=== PATIENT | male | born 1935 | race Caucasian/White ===

== ENCOUNTER 2016-11-20 21:41 | Inpatient (IN) | payer OTHER ==
--- NOTE | ~2016-11-20 | DS ---
Discharge Summary [facility] [address] [place]. [address] NAME: LATOYA LIAO : 37 STATUS : ADM IN [facility]#: [id number] AGE: 81 ADM/REG DATE : 11/20/16 MR#: [id number] REPORT SERV DATE: 12/02/16 DICTATED BY: DATE: REPORT STATUS : Draft TRANSCRIBED BY: MODL DATE: 12/01/16 ADMISSION DATE: 11/20/2016 DISCHARGE DATE: 12/01/2016 ATTENDING PHYSICIANS: Dr. Dodie Berumen and Dr. Kyler Whitmore. CONSULTANTS: Included Dr. Abebe George of Vascular Surgery and Dr. Tesfaye Spencer of Infectious Disease. The patient was also seen by Dr. Maite Rodríguez of Gastroenterology. DISCHARGE DIAGNOSES: 1. 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 Status post four units packed red blood cells between 11/20/2016 and 11/22/2016. Discharge hemoglobin value 7.5. 2. Right lower extremity cellulitis - treated with antibiotics. 3. Severe right lower extremity peripheral arterial disease with multiple failed revascularization attempts of an occluded right femoral tibial bypass on 11/24/2016. Status post right [id number]-irp-[id number] amputation on 11/27/2016. 4. History of bilateral lower extremity lymphedema. 5. Hyponatremia due to diuretics. 6. Recurrent urinary retention - with indwelling Jimenez catheter at discharge. 7. Parkinson disease with mild dementia. 8. Hard of hearing. 9. History of ocular melanoma. 10.Coronary artery disease with prior coronary artery bypass grafting. 11.Chronic atrial fibrillation with permanent pacemaker placement. 12.Gout. 13.Hyperlipidemia. 14.Hypertension. 15.Chronic diastolic dysfunction without acute exacerbation this admission. 16.Constipation. 17.Acute kidney injury present at admission - resolved. IMAGIN. Multiple portable chest x-rays demonstrating cardiomegaly but no acute pulmonary edema. Bilateral lower extremity venous Doppler ultrasounds, 11/21/2016. No DVT. Pain films of bilateral lower extremities shows soft tissue swelling and cellulitis but no foreign body or bony involvement. Arterial Doppler 11/21/2016 showing severe right lower extremity arterial occlusive disease on the right likely originating at the aortoiliac level with monophasic flow in the common femoral artery, and probable occluded posterior tibial artery bypass graft. 2. KUB 11/30/2016, moderate fecal material in the right colon and mild retained fecal material in the rectal vault. No chronic colonic stasis. No obstruction. PERTINENT LABS: Creatinine during the admission ranged from 0.88 to 1.41. Sodium values ranging from 129 to 136. Liver enzymes were normal. Troponin negative. TSH 1.05. BNP 256. Lactic acid negative. Initial white blood cell count 8.3, hemoglobin values ranging Discharge Summary [address] [address] NAME: LATOYA LIAO : 37 STATUS : ADM IN PAT#: [id number] AGE: 81 ADM/REG DATE : 11/20/16 MR#: [id number] REPORT SERV DATE: 12/02/16 DICTATED BY: DATE: REPORT STATUS : Draft TRANSCRIBED BY: MODJamarcus DATE: 12/01/16 from 5.9 to 8.0 during the hospitalization, 7.5 at discharge. Platelet count normal. Coagulation studies normal. Urinalysis negative for urinary tract infection. Blood cultures x2, no growth. Stool for C. diff negative. Wound cultures of the foot, no fungal elements. BRIEF HISTORY: For full details, please see the previously dictated history of present illness by Alvin Snow. This is an 81-year-old white male with Parkinson disease and progressive weakness over the preceding one month. He was living at home and his sisters were attempting to care for him there but he was experiencing progressive weakness of the lower extremities and had sustained four to five falls. He was becoming progressively bed- bound, but also having increased urinary frequency and it became difficult for his sisters to care for him. Then, he developed some dark tarry stools, some swelling in his legs, and redness of his right foot. They brought him to the emergency department for evaluation of all these concerns and he was found to have acute blood loss anemia with a hemoglobin of 5.9. He was heme positive. He also showed right foot cellulitis and was admitted to the Hospitalist Service for management. HOSPITAL COURSE: For full details, please see the interim discharge summary dictated by Dodie Berumen for dates of service, 11/20/2016 through 11/24/2016. For the acute blood loss anemia, the patient was transfused four units of packed red blood cells between 11/20/2016 and 11/22/2016. GI consultation was obtained, and the patient underwent an upper endoscopy on 11/22/2016 demonstrating gastric AVMs which were ablated by Dr. Maite Rodríguez. He did not demonstrate any recurrent GI bleeding from that point on. His hemoglobin is 7.5 at the time of discharge, which is low, but he is asymptomatic from this and will not be felt to recover his hemoglobin additionally as an outpatient. He is discharged on iron. For the right lower extremity cellulitis, he was placed on IV antibiotics. Infectious Disease consultation was obtained, and the patient was initially on Ancef and clindamycin. Arterial ultrasound demonstrated occlusion of the prior bypass graft in the right lower extremity. Vascular Surgery was consulted and attempted to revascularize the leg on 11/24/2016 but was unsuccessful. They recommended right above the knee amputation to the patient, versus hospice. It took him several days to decide that he wanted to have a right above the knee amputation, and this occurred without complication on 11/27/2016. He remained in the hospital for his dressing to be taken down on 11/30/2016, which also occurred without complication and he was felt appropriate for discharge to rehab on 12/01/2016. His family is unable to care for him in his current condition at home. The patient has elected [facility]. For chronic bilateral lymphedema, the patient has been managed with Bumex. He has developed some hyponatremia with this, again asymptomatic, which can be monitored as an outpatient. The patient had multiple episodes of recurrent urinary retention during the hospitalization. He is being discharged with a Jimenez catheter in place. He has also been started on Flomax. Attempts to discontinue the Jimenez could be made in a few weeks, but would need to be monitored closely for recurrent retention. Discharge Summary [address] [place]. [address] NAME: LATOYA LIAO : 37 STATUS : ADM IN [facility]#: [id number] AGE: 81 ADM/REG DATE : 11/20/16 MR#: [id number] REPORT SERV DATE: 12/02/16 DICTATED BY: DATE: REPORT STATUS : Draft TRANSCRIBED BY: MODL DATE: 12/01/16 Due to the severity of GI bleeding and the decline in hemoglobin this admission, the patient is not felt to be a candidate for chronic anticoagulation despite history of chronic atrial fibrillation. DISCHARGE DISPOSITION: The patient is being discharged to [facility]. Jimenez catheter will be continued at discharge for reasons above. He should adhere to a cardiac diet with 1500 mL fluid restriction at discharge. CBC and BMP will need to be checked at rehab in one week to follow the anemia and hyponatremia. Wound care and activity restrictions as outlined by Vascular Surgery. DISCHARGE MEDICATIONS: Include: 1. Allopurinol 300 mg p.o. daily. 2. Artificial Tears two drops in each eye four times a day. 3. Aspirin 81 mg p.o. daily. 4. Lipitor 40 mg p.o. at bedtime. 5. Bumex 1 mg p.o. daily. 6. Iodosorb to ulcers daily. 7. Captopril 25 mg p.o. daily. 8. Sinemet 25/100 mg one tablet p.o. four times a day. 9. Iron sulfate 300 mg p.o. q.a.c. breakfast and supper. 10.Nystatin powder applied to groin as needed. 11.Protonix 40 mg p.o. q.a.c. breakfast and supper. 12.Potassium 10 mEq p.o. twice a day. 13.Primidone 250 mg p.o. daily. 14.Requip 0.5 mg p.o. four times a day. 15.Spironolactone 25 mg p.o. daily. 16.Carafate 1 g p.o. twice a day. 17.Topamax 100 mg p.o. daily. 18.Tylenol 1000 mg p.o. every six hours as needed. 19.Colace 100 mg p.o. twice a day as needed. 20.Zofran 4 mg p.o. q.4 hours p.r.n. 21.Percocet 5/325, one tablet p.o. every four hours as needed. 22.Flomax 0.4 mg p.o. at bedtime. Thirty five minutes was spent in completion of the discharge summary. DICTATED BY: Naomie Frankel/MACIE Kyler Whitmore M.D. Discharge Summary [facility] [address] [place]. [address] NAME: LATOYA LIAO : 37 STATUS : ADM IN PAT#: [id number] AGE: 81 ADM/REG DATE : 11/20/16 MR#: [id number] REPORT SERV DATE: 12/02/16 DICTATED BY: DATE: REPORT STATUS : Draft TRANSCRIBED BY: MODL DATE: 12/01/16 / [id number] CC: Naomie Frankel M.D. Sachin V Phade, M.D. Dennis Bizzoco, D.PMD Nara Urban M.D. Nathan B. Wyatt, MD [facility]
--- NOTE | ~2016-11-20 | CN ---
Consultation Report [facility] [address] [place]. [address] NAME: LATOYA GEORGE : 37 STATUS : ADM IN [facility]#: [id number] AGE: 81 ADM/REG DATE : 11/20/16 MR#: [id number] REPORT SERV DATE: 11/25/16 DICTATED BY: MONTEZ RODRÍGUEZ DATE: 11/25/16 REPORT STATUS : Draft TRANSCRIBED BY: MODL DATE: 11/25/16 GI CONSULTATION DATE OF CONSULTATION: 11/21/2016 REASON FOR CONSULTATION: Melena and anemia. HISTORY OF PRESENT ILLNESS: Mr. George is an 81-year-old gentleman with a history of coronary artery disease, status post CABG in 2003 and stent placement in 2008. He also has a history of atrial fibrillation, and presents with dark stools and more frequent falls over the past couple of months. Denies any bright red blood per rectum. Also has had associated weakness. He has also noted an increased lower extremity edema and erythema over the past one week. Hemoglobin and hematocrit were low when he first came in at 5.9 and 22.8, respectively, and they are currently 7 and 25.7, MCV 63, platelets 262. INR is 1.3. Troponins have been negative. BUN and creatinine ratio is 41:1.3. No nausea or vomiting. No abdominal pain. No coffee-ground or hematemesis. 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 PAST SURGICAL HISTORY: Coronary artery bypass graft in 2003 and PCI with stent placement in 2008, pacemaker placed. SOCIAL HISTORY: Tobacco use. No alcohol or drug use. He uses a walker for ambulation. FAMILY HISTORY: Coronary artery disease. MEDICATIONS: Reviewed. ALLERGIES: NO KNOWN DRUG ALLERGIES. PHYSICAL EXAMINATION: VITAL SIGNS: Patient is afebrile. Vital signs are stable. GENERAL: The patient is awake, alert, and oriented x3. Well developed, well nourished, in no acute distress. HEENT: Atraumatic, normocephalic. Anicteric. Mucous membranes moist. CARDIAC: S1, S2. CHEST: Clear. ABDOMEN: Soft, nontender, and nondistended. Bowel sounds normoactive. LABORATORY DATA: Show WBC 8.9, hemoglobin 7, hematocrit 25.7, platelets 262. INR 1.3. Sodium 138, potassium 3.2, chloride 102, bicarb 26, BUN 41, creatinine 1.3. Glucose 107. Liver enzymes normal. Troponin negative. TSH normal. Consultation Report [facility] [address] [place]. [address] NAME: LATOYA GEORGE : 37 STATUS : ADM IN [facility]#: [id number] AGE: 81 ADM/REG DATE : 11/20/16 MR#: [id number] REPORT SERV DATE: 11/25/16 DICTATED BY: MONTEZ RODRÍGUEZ DATE: 11/25/16 REPORT STATUS : Draft TRANSCRIBED BY: MACIE DATE: 11/25/16 IMPRESSION AND PLAN: Anemia secondary to possible upper GI bleed with history of melena. We will go ahead and make n.p.o. and schedule for EGD with anesthesia to sedate. Dr. George will be covering over the weekend and I will discuss this with him. I reviewed the procedure, indications, risks, benefits, and alternatives with the patient, and questions and concerns were addressed. MATA/MACIE Montez Rodríguez MD / [id number] CC: Kyler Whitmore M.D. George Sommers M.D.
--- NOTE | ~2016-11-20 | HP ---
History And Physical [id number] [facility] [place]. [address] NAME: LATOYA LIAO : 37 STATUS : ADM IN [facility]#: [id number] AGE: 81 ADM/REG DATE : 11/20/16 MR#: [id number] REPORT SERV DATE: 11/21/16 DICTATED BY: KAVIN AQUINO DATE: 11/21/16 REPORT STATUS : Draft TRANSCRIBED BY: MODL DATE: 11/21/16 DATE OF ADMISSION: 11/20/2016 CHIEF COMPLAINT: An 81-year-old male presenting with tarry black stool and falls. HISTORY OF PRESENT ILLNESS: The patient's history was obtained through careful interview with the patient, sister, nephew, coupled with review of [facility] and [facility] medical records. The patient states that for couple of months he has noticed "tar balls" in his stool but no bright red blood per rectum. Also during that period of time he has become progressively more weak. He states that now his knees feel wobbly and this is as if they are going to give out, and over the last month alone, he has had four or five falls. When he falls, he is unable to get up from a fallen position. Finally, the patient was evaluated by [facility] earlier on the day of admission and was told immediately to come to the emergency department and they transferred him by ambulance for evaluation. It was a few months ago that he began to develop increasing lower extremity edema and also a red discoloration over his feet to the right foot greater than the left but now the redness has really increased over the last six or seven days. He describes an aching quality discomfort, 8/10 severity, exacerbated by weightbearing. He has no reflux symptoms. No nausea, vomiting. No abdominal pain. No chest pain. He does describe chronic dyspnea on exertion. No cough. REVIEW OF SYSTEMS: Otherwise, complete review of systems was obtained and was negative including a 14-point review of systems. PAST MEDICAL HISTORY: 1. Coronary artery disease, status post CABG in 2003, vein graft stent placement in 2008, followed by Dr. Armando Lorenzo. 2. Restless legs syndrome. 3. Atrial fibrillation. 4. Gout. 5. Pacemaker, seen by Dr. Keith Hennessy. 6. Parkinson disease. 7. Peripheral vascular disease. 8. Dyslipidemia. PAST SURGICAL HISTORY: History And Physical [address] [place]. [address] NAME: LATOYA LIAO : 37 STATUS : ADM IN [facility]#: [id number] AGE: 81 ADM/REG DATE : 11/20/16 MR#: [id number] REPORT SERV DATE: 11/21/16 DICTATED BY: KAVIN AQUINO DATE: 11/21/16 REPORT STATUS : Draft TRANSCRIBED BY: MACIE DATE: 11/21/16 1. CABG 2003. 2. Pacemaker. 3. Melanoma of the left eye. ALLERGIES: NO KNOWN DRUG ALLERGIES. SOCIAL HISTORY: The patient is a smoker. Does not drink alcohol. He never . Has no children. He lives in [place], [place], with his sister. He ambulates with a walker. FAMILY HISTORY: Father with heart disease. CURRENT MEDICATIONS: Include allopurinol 300 mg p.o. daily, Bumex 2 mg p.o. b.i.d., captopril 25 mg p.o. daily, carbidopa-levodopa p.o. four times a day, diclofenac, lisinopril 10 mg p.o. daily, primidone 250 mg p.o. daily, Requip 0.5 mg p.o. four times a day, Zocor 20 mg p.o. daily, Aldactone 25 mg p.o. daily, and Topamax 100 mg p.o. daily. PHYSICAL EXAMINATION: VITAL SIGNS: Temperature 98.8, pulse 60, blood pressure 129/46, respiratory rate 17, and O2 saturation 98% on room air. GENERAL: Chronically ill-appearing male, in no particular distress at this time. HEENT: Pupils equal, round, and reactive to light. The patient has significant conjunctival pallor but no scleral icterus. Nares are patent. Oropharynx is clear of obstruction. Dry mucous membranes. NECK: Trachea midline. No thyromegaly. LYMPH: No cervical lymphadenopathy. No supraclavicular lymphadenopathy. RESPIRATORY: Clear to auscultation at bases. No wheezes, rales, or rhonchi. Normal respiratory effort. CARDIOVASCULAR: Regular rate and rhythm. No murmurs, rubs, or gallops. No extremity edema is appreciated. ABDOMEN: Soft, nontender, nondistended. Normal bowel sounds auscultated throughout. No hepatosplenomegaly. DERMATOLOGICAL: The patient's right foot shows erythema, heat, swelling, tenderness. Poor skin breakdown around his toes. Otherwise, warm and dry extremities. No pallor. No cyanosis. PSYCHIATRIC: Normal affect. Good mood. Alert and oriented x3. LABORATORY DATA: White blood cell count 8.3, hemoglobin 5.9, hematocrit 22.8, and platelets 258. Sodium 136, potassium 3.6, chloride 100, bicarb 29, BUN 43, creatinine 0.41, glucose 104, albumin 2.8. Lactic acid 1.0. INR 1.3. Liver enzymes within normal limits. MCV 63. ASSESSMENT AND PLAN: 1. Acute blood loss anemia, symptomatic, transfuse blood. 2. Upper gastrointestinal bleed. Place on IV proton pump inhibitor drip. Hold diclofenac. Consult Dr. Rodríguez, bottler. 3. Right foot cellulitis. Obtain a Wound Care consult and a Podiatry consult, Dr. Zazueta. Place on IV vancomycin. 4. Parkinson disease. History And Physical [address] [address] NAME: LATOYA LIAO : 37 STATUS : ADM IN [facility]#: [id number] AGE: 81 ADM/REG DATE : 11/20/16 MR#: [id number] REPORT SERV DATE: 11/21/16 DICTATED BY: KAVIN QAUINO DATE: 11/21/16 REPORT STATUS : Draft TRANSCRIBED BY: MACIE DATE: 11/21/16 KPL/MACIE Kavin Aquino M.D. / [id number] CC: MD Nara Vanegas M.D.
--- NOTE | ~2016-11-20 | DS ---
Discharge Summary [facility] [address] [place]. [address] NAME: LATOYA LIAO : 37 STATUS : DIS IN PAT#: [id number] AGE: 81 ADM/REG DATE : 11/20/16 MR#: [id number] REPORT SERV DATE: 12/04/16 DICTATED BY: ANDREW HOOPER DATE: 12/03/16 REPORT STATUS : Draft TRANSCRIBED BY: MODL DATE: 12/03/16 ADMISSION DATE: 11/20/2016 DISCHARGE DATE: 12/03/2016 ADDENDUM: Addendum to discharge summary dictated by Dr. Whitmore on 12/01/2016. CONDITION ON DISCHARGE: Stable. DISPOSITION: Discharged to [facility] in [facility] today on 12/03/2016. The patient will be discharging to the rehab there with Jimenez catheter in. Please refer to discharge summary dictated by Dr. Whitmore on 12/01/2016. I followed this patient on 12/02/2016 and 12/03/2016 simply because he was pending insurance approval for transfer to [facility]. He got approved and a bed was available finally on 12/03/2016 and hence he is being moved there in stable condition with Jimenez catheter in for further rehab/SNF. MAIN DIAGNOSES: 1. Main diagnosis in this patient is recent GI bleed from multiple gastric AV malformation, status post coagulation after he underwent EGD. 2. Acute blood loss anemia from above-resolved. 3. Chronic anemia from nutritional deficiency-improving because the patient is on iron now. 4. Right lower extremity cellulitis and severe peripheral vascular disease of right lower extremity, status post above-knee amputation of the right lower extremity. The right lower extremity could not be saved as he had severe vascular disease with reocclusion of the bypass graft in the right lower extremity. In addition to that, he had severe cellulitis of right lower extremity. Hence unfortunately, this hospitalization, the patient had to undergo right above-knee amputation. This is stable now. The stump appears clean right now. 5. All other conditions in this patient that are chronic include Parkinson disease and [id number]-lg-[id number] dementia. 6. Code status is DNR and power of employee benefits attorney is with his sisters. Hence, the patient is transferred in stable condition to [facility] in [facility] with exact same medications as dictated by Dr. Whitmore and with exact discharge diagnosis as dictated by Dr. Whitmore. In total, I have spent about 35 minutes in coordinating discharge care of this patient. DICTATED BY: Naomie Corcoran/MACIE Discharge Summary [address] [address] NAME: LATOYA LIAO : 37 STATUS : DIS IN PAT#: [id number] AGE: 81 ADM/REG DATE : 11/20/16 MR#: [id number] REPORT SERV DATE: 12/04/16 DICTATED BY: ANDREW HOOPER DATE: 12/03/16 REPORT STATUS : Draft TRANSCRIBED BY: MACIE DATE: 12/03/16 Andrew Hooper M.D. / [id number] CC: Naomie Corcoran M.D.
--- NOTE | ~2016-11-20 | EGD ---
EGD REPORT [facility] [address] [address] NAME: ED GEORGE : 37 STATUS : ADM IN PAT#: [id number] AGE: 81 ADM/REG DATE : 11/20/16 MR#: [id number] REPORT SERV DATE: 11/22/16 DICTATED BY: YUE ESCALANTE DATE: 11/22/16 REPORT STATUS : Draft TRANSCRIBED BY: [facility] DATE: 11/22/16 [facility] Patient Name: Ed George Date of : 1935 Attending MD: YUE ESCALANTE MD Procedure Date No Time: 11/22/2016 Procedure: Upper GI endoscopy Indications: Acute post hemorrhagic anemia, Melena, Suspected upper gastrointestinal bleeding Referring MD: FANNY BEAN Medicines: Propofol per Anesthesia Complications: No immediate complications. Procedure: Pre-Anesthesia Assessment: - ASA Grade Assessment: III - A patient with severe systemic disease. After obtaining informed consent, the endoscope was passed under direct vision. Throughout the procedure, the patient's blood pressure, pulse, and oxygen saturations were monitored continuously. The GIF [id number] was introduced through the mouth, and advanced to the third part of duodenum. The upper GI endoscopy was accomplished without difficulty. The patient tolerated the procedure well. Findings: Non-severe esophagitis with no bleeding was found in the lower third of the esophagus. A small hiatus hernia was present. as seen on retroflexion Diffuse mild inflammation characterized by congestion (edema) and erythema was found in the entire examined stomach. A few small angioectasias with no bleeding were found in the gastric body and in the gastric antrum. Vaporization for tissue destruction using argon beam was successful. Localized mild inflammation characterized by congestion (edema) and erythema was found in the duodenal bulb. The 2nd part of the duodenum and 3rd part of the duodenum were normal. Impression: - Non-severe reflux esophagitis. - Hiatus hernia. - Gastritis. - A few non-bleeding angioectasias in the stomach. Treated with thermal therapy. - Duodenitis. - Normal 2nd part of the duodenum and 3rd part of the duodenum. EGD REPORT [address] [address] NAME: ED GEORGE : 37 STATUS : ADM IN [facility]#: [id number] AGE: 81 ADM/REG DATE : 11/20/16 MR#: [id number] REPORT SERV DATE: 11/22/16 DICTATED BY: YUE ESCALANTE DATE: 11/22/16 REPORT STATUS : Draft TRANSCRIBED BY: [employer] DATE: 11/22/16 Recommendation: - Return to previous diet. - Continue present medications. - Use Protonix (pantoprazole) 40 mg PO BID. - take 30-60 minutes before breakfast and supper - Use sucralfate tablets 1 gram PO BID. - before lunch and at bedtime - Check hemoglobin q 8 hours for two days. - [facility] patient to [facility] for [facility] care. Procedure Code(s): --- Professional --- 49739, Esophagogastroduodenoscopy, flexible, transoral; with ablation of tumor(s), polyp(s), or other lesion(s) (includes pre- and post-dilation and guide wire passage, when performed) Diagnosis Code(s): --- Professional --- K21.0, Gastro-esophageal reflux disease with esophagitis K44.9, Diaphragmatic hernia without obstruction or gangrene K29.70, Gastritis, unspecified, without bleeding K31.819, Angiodysplasia of stomach and duodenum without bleeding K29.80, Duodenitis without bleeding D62, Acute posthemorrhagic anemia K92.1, Melena CPT copyright 2013 [employer]. All rights reserved. The codes documented in this report are preliminary and upon caustic purification operator review may be revised to meet current compliance requirements. Yue Escalante MD YUE ESCALANTE MD 11/22/2016 12:30 PM This report has been signed electronically. Number of Addenda: 0 Note Initiated On: 11/22/2016 11:16 AM Scope Withdrawal Time 0 hours 0 minutes 0 seconds [id number] [id number]
--- NOTE | ~2016-11-20 | OP ---
Record Of Operation [facility] [address] [place]. [address] NAME: LATOYA LIAO : 37 STATUS : ADM IN [facility]#: [id number] AGE: 81 ADM/REG DATE : 11/20/16 MR#: [id number] REPORT SERV DATE: 11/25/16 DICTATED BY: ABEBE GEORGE DATE: 11/24/16 REPORT STATUS : Draft TRANSCRIBED BY: MODJamarcus DATE: 11/24/16 DATE OF PROCEDURE: 11/24/2016 PREOPERATIVE DIAGNOSIS: Raisa V chronic right lower extremity ischemia. POSTOPERATIVE DIAGNOSIS: Raisa V chronic right lower extremity ischemia. PROCEDURE: 1. Aortogram with right lower extremity runoff. 2. AngioJet pharmacomechanical thrombectomy and thrombolysis of the right femoral to posterior tibial bypass as well as the posterior tibial artery. 3. Thrombectomy of the right femoral to posterior tibial bypass. 4. Percutaneous angioplasty of the femoral to posterior tibial bypass with a 6 mm balloon, the distal anastomosis with a 4 mm balloon, and the posterior tibial artery with a 2.5 mm balloon. SURGEON: Abebe George M.D. MAT SEWER: None. ANESTHESIA: MAC plus local. 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 Now, he has an abnormal pulse examination with nonhealing wounds. Thus, he was consented for intervention. DESCRIPTION OF PROCEDURE: After informed consent was obtained, the patient was taken to the operating room and placed in the supine position on the operating table. Monitored anesthesia was administered. His groins and right lower extremity were prepped and draped in usual sterile fashion. Ultrasound-guided access was obtained in the left common femoral artery using micropuncture technique. The ultrasound image was documented on the chart. An oblique angiogram confirmed puncture within the anterior common femoral artery. I passed a wire up into the aorta and placed a 5-Andorran sheath. A UF catheter was placed into the perirenal aorta. An aortogram demonstrated no hemodynamically significant aortic disease with patent renal arteries. I pulled the catheter down above the aortic bifurcation and obtained additional imaging that demonstrated no hemodynamically significant iliac disease. I selected out the right external iliac artery and obtained sequential imaging down the right lower extremity. There was a patent right common femoral and deep femoral artery. The SFA was patent proximally, but occluded near the Mason's canal. More distal reconstitution was not noted. There was a bypass originating off the SFA that was occluded, although the proximal stump was patent. More distal runoff was not once again visualized. I systemically heparinized and placed a 6-Andorran sheath up and over the aortic bifurcation into the right common femoral artery. I crossed the right femoral to posterior tibial bypass and obtained an angiogram confirming my presence in the true lumen. I performed AngioJet pharmacomechanical thrombectomy and thrombolysis of his right femoral to posterior Record Of Operation [facility] [address] [place]. [address] NAME: LATOYA LIAO : 37 STATUS : ADM IN PAT#: [id number] AGE: 81 ADM/REG DATE : 11/20/16 MR#: [id number] REPORT SERV DATE: 11/25/16 DICTATED BY: ABEBE GEORGE DATE: 11/24/16 REPORT STATUS : Draft TRANSCRIBED BY: MACIE DATE: 11/24/16 tibial bypass. While there was some improvement, there was clearly an underlying stenosis. I angioplastied the posterior tibial artery with a 2.5 mm balloon. I angioplastied the graft with a 6 mm balloon. I angioplastied the venous anastomosis with a 4 mm balloon. Imaging obtained afterwards showed a persistently occluded bypass. I performed AngioJet thrombectomy again including of the right SFA. There was no significant improvement. I then used the Penumbra CAT6 device to perform a percutaneous thrombectomy of the bypass as well as the posterior tibial artery. Imaging obtained afterwards showed no significant improvement. I obtained further imaging with repeated angioplasties and percutaneous thrombectomies, but the result was essentially unchanged. At this point, I withdrew my wire, catheter, and sheath and used a ProGlide device to close the arteriotomy. Of note, I did obtain an angiogram with the catheter in the posterior tibial artery showing that the plantar arch was indeed patent. This was not previously visualized. CHIKA/MACIE Naomie Jacobs#: [id number] / [id number] CC: Naomie Corcoran M.D. Dennis Bizzoco, D.P.M.
--- NOTE | ~2016-11-20 | IDS ---
Interim Discharge Summary [facility] [address] [place]. [address] NAME: LATOYA LIAO : 37 STATUS : ADM IN PAT#: [id number] AGE: 81 ADM/REG DATE : 11/20/16 MR#: [id number] REPORT SERV DATE: 11/25/16 DICTATED BY: ANDREW HOOPER DATE: 11/24/16 REPORT STATUS : Draft TRANSCRIBED BY: MODL DATE: 11/24/16 ADMISSION DATE: 11/20/2016 DISCHARGE DATE: DIAGNOSES: So far on this patient include: 1. Gastrointestinal bleed - upper gastrointestinal bleed, status post upper endoscopy. 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 The patient has also received two units of blood transfusion and his hemoglobin and hematocrit has improved some. The patient continues to be anemic, but he can recover his hemoglobin and hematocrit with supplemental iron from now. 2. His other problems are also right lower extremity cellulitis for which he is being treated with antibiotics per ID. 3. He also has significant peripheral vascular disease in both lower extremities, but more so in the right lower extremity. The patient has had a fem-tib bypass in the past and arterial ultrasound of the right lower extremity showed a blockage in the fem-tibial bypass graft. Hence, the patient is undergoing an angiogram and hopefully angioplasty today by Dr. George. 4. Other diagnoses also include chronic diastolic heart failure for which the patient is receiving diuretics. 5. History of coronary artery disease with coronary artery bypass graft in the past, stent placement in the past, followed by Dr. Lorenzo, this is stable. 6. Chronic atrial fibrillation - the patient is not on anticoagulation for this and will not be given history of arteriovenous malformations and significant gastrointestinal bleed. Aspirin should be okay. 7. History of gout, which is stable and not an acute issue now. 8. History of pacemaker placement - not an acute issue now. 9. Parkinson disease and dementia. 10.Significant peripheral vascular disease. His code status is a DNR - his sisters have power of deputy prosecuting attorney over this patient because of his Parkinson disease and dementia. Sisters have decided that per the patient's consideration and as per the patient's wishes, the patient would have like to be a DNR and at this time his code status is a DNR. BRIEF HOSPITAL COURSE: As above. Please also see history and physical exam by Dr. Mckenzie. Essentially, this patient's antibiotics are being managed by ID. He is on IV Rocephin and IV clindamycin per ID. CONSULTANTS: Consultants on this case include: 1. Infectious Disease Specialist, Dr. Tesfaye Spencer. 2. Dr. Abebe George, the vascular surgeon, who will be performing his angiography and also hopefully angioplasty today on 11/24/2016. So far, lab reports that I have on this patient show that his hemoglobin and hematocrit are Interim Discharge Summary [address] [place]. [address] NAME: LATOYA LIAO : 37 STATUS : ADM IN [facility]#: [id number] AGE: 81 ADM/REG DATE : 11/20/16 MR#: [id number] REPORT SERV DATE: 11/25/16 DICTATED BY: ANDREW HOOPER DATE: 11/24/16 REPORT STATUS : Draft TRANSCRIBED BY: MODL DATE: 11/24/16 fairly stable at 7.8 and 27.9, and he has had no more episodes of GI bleed after those gastric angioectasias have been fixed. His electrolyte profile today shows a BUN of 29 and creatinine of 1.1, which has significantly improved. Blood cultures so far have come back with no growth in two days. I do not have wound cultures on this patient right now, but apparently the patient is known to Dr. Zazueta, the paper sales representative, and also Dr. Tesfaye Spencer, who has him on the above antibiotics as mentioned. Disposition on this patient will most likely be to an inpatient rehab facility, antibiotics per ID recommendations and it will depend on how good the patient's revascularization procedure will occur at this time. This is my discharge summary and this patient will be taken over by my partner on 11/24/2016. RRA/MODL Andrew Hooper M.D. / [id number] CC: Naomie Corcoran M.D.
--- NOTE | ~2016-11-20 | OP ---
Record Of Operation [facility] [address] [place]. [address] NAME: LATOYA LIAO : 37 STATUS : ADM IN PAT#: [id number] AGE: 81 ADM/REG DATE : 11/20/16 MR#: [id number] REPORT SERV DATE: 11/29/16 DICTATED BY: ABEBE GEORGE DATE: 11/29/16 REPORT STATUS : Draft TRANSCRIBED BY: MACIE DATE: 11/29/16 DATE OF PROCEDURE: 11/27/2016 PREOPERATIVE DIAGNOSIS: Raisa 5 chronic right lower extremity ischemia. POSTOPERATIVE DIAGNOSIS: Raisa 5 chronic right lower extremity ischemia. PROCEDURE: Right laqsu-ysz-hpsb amputation. SURGEON: Abebe George M.D. FUR EXAMINER: Evangelista Burciaga. ANESTHESIA: General. INDICATIONS: The patient is an 81-year-old gentleman with a history of remote tobacco abuse, who has had atherosclerosis of his right lower extremity. He has had interventions on his right lower extremity in the past including a right femoral to posterior tibial bypass in the remote past. He has nonhealing wounds and infection. Thus, he was consented for a right gvtqw-pyo-bpuh amputation after failed percutaneous revascularization. DESCRIPTION OF PROCEDURE: After informed consent was obtained, the patient was taken to the operating room and placed in the supine position on the operating table. He was intubated and general anesthesia was administered. His right lower extremity was prepped and draped in the usual sterile fashion, carefully excluding the right leg wounds. A femoral block had previously been administered in addition to his general anesthesia. A fishmouth skin incision was made along with distal thigh. Cautery was used to deepen the incision. I dissected out the neurovascular bundles, which were suture ligated and divided. The nerves were injected with local anesthesia. The previously placed femoral to posterior tibial bypass graft was occluded. Nonetheless, it was ligated and divided. The soft tissue overlying this graft was closed for an additional level of protection. I transected the femur. I beveled the edges. I completed the posterior flap. I achieved hemostasis. I washed out the wound and closed in layers. The patient tolerated the procedure well without any intraprocedural complications noted. PSYCHOLOGIST EXPERIMENTAL/MACIE Abebe George M.D. / [id number] CC: Kyler Whitmore M.D. Record Of Operation [address] [address] NAME: LATOYA LIAO : 37 STATUS : ADM IN PAT#: [id number] AGE: 81 ADM/REG DATE : 11/20/16 MR#: [id number] REPORT SERV DATE: 11/29/16 DICTATED BY: ABEBE GEORGE DATE: 11/29/16 REPORT STATUS : Draft TRANSCRIBED BY: MODL DATE: 11/29/16 George Sommers M.D.
--- NOTE | ~2016-11-20 | CN ---
Consultation Report [facility] [address] [place]. [address] NAME: LATOYA LIAO : 37 STATUS : ADM IN [facility]#: [id number] AGE: 81 ADM/REG DATE : 11/20/16 MR#: [id number] REPORT SERV DATE: 11/22/16 DICTATED BY: ABEBE GEORGE DATE: 11/22/16 REPORT STATUS : Draft TRANSCRIBED BY: MODJamarcus DATE: 11/22/16 CONSULT NOTE DATE OF CONSULTATION: 11/22/2016 REASON FOR CONSULTATION: Evaluation for atherosclerosis of his bilateral lower extremities with ulceration. BRIEF HISTORY: The patient is an 81-year-old gentleman with a past medical history significant for tobacco abuse, who came to the hospital with tarry black stools and falls. He is being worked up for anemia. He was noted to have lower extremity edema and wounds. He was also noted to have an abnormal pulse exam. I was consulted for evaluation and treatment for his lower extremity vascular disease, as Dr. Zazueta has been caring for his wounds. The patient is a poor historian, so most of the history was obtained from the chart. The patient complains of right leg pain at his ulceration sites. PAST MEDICAL HISTORY: Coronary artery disease, status post coronary revascularization; atrial fibrillation; restless legs syndrome; Parkinson disease; dyslipidemia. PAST SURGICAL HISTORY: Includes coronary revascularization and pacemaker placement. ALLERGIES: NONE. SOCIAL HISTORY: He is a smoker. He denies any alcohol abuse. He is not and has no children. He lives in [place], [place] with his sister. His sister is about 5 years younger than him and helps him with his medical decisions. FAMILY HISTORY: Heart disease. MEDICATIONS: Documented on the chart and were reviewed. REVIEW OF SYSTEMS: A complete review of systems was performed and is negative with the exception of the aforementioned findings. PHYSICAL EXAMINATION: VITAL SIGNS: Documented on the chart and were reviewed. GENERAL: The patient is awake, alert, oriented. No apparent distress. 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 He has poor dentition. I do not appreciate carotid bruits. HEART: Has a regular rate and rhythm. LUNGS: Clear. ABDOMEN: Soft, distended, nontender, with a nonpalpable aorta. He has a normal complement of upper extremity pulses without any significant edema or ischemic ulcerations. I think I Consultation Report [facility] [address] [place]. [address] NAME: LATOYA LIAO : 37 STATUS : ADM IN [facility]#: [id number] AGE: 81 ADM/REG DATE : 11/20/16 MR#: [id number] REPORT SERV DATE: 11/22/16 DICTATED BY: ABEBE GEORGE DATE: 11/22/16 REPORT STATUS : Draft TRANSCRIBED BY: MODJamarcus DATE: 11/22/16 can feel femoral pulses. They are difficult to feel because he is restless. I do not appreciate popliteal or pedal pulses. He has tremendous pitting edema bilaterally. He has superficial ulcerations and chronic edematous changes to his skin. NEUROLOGICAL: Reveals confusion, but no localizing or lateralizing deficits. MUSCULOSKELETAL: Benign. He does have some erythema along his right foot with some superficial ulcerations. LABORATORY DATA: His laboratory investigations reveal anemia. He has no leukocytosis. His renal function is normal. His albumin is low. I reviewed his venous study. It suggests that he has no DVT. His arterial duplex suggests that he has had a bypass on his right leg. I do not see the scars from this and certainly cannot feel it. The bypass is occluded and he has monophasic waveforms. Ankle and toe pressures were not obtained. ASSESSMENT AND PLAN: It looks like this gentleman has atherosclerosis of his lower extremities with ulceration. I introduced the risks, benefits, and alternatives of angiography with intervention. Given the fact that he has confusion, I do not feel comfortable getting consent from him. I would like to get more history also from the patient's sister, as I do not see scars from a bypass and there was a mention of him having one in his ultrasound report. He may have limited options here for revascularization. MANAGER CLEANING/MODJamarcus Abebe George M.D. / [id number] CC: MD Nara Vanegas M.D.
--- NOTE | ~2016-11-20 | CN ---
Consultation Report [facility] [address] [place]. [address] NAME: LATOYA LIAO : 37 STATUS : ADM IN [facility]#: [id number] AGE: 81 ADM/REG DATE : 11/20/16 MR#: [id number] REPORT SERV DATE: 11/21/16 DICTATED BY: LEILA LARSON DATE: 11/21/16 REPORT STATUS : Draft TRANSCRIBED BY: MODJamarcus DATE: 11/21/16 INFECTIOUS DISEASE CONSULT DATE OF CONSULTATION: REASON FOR REFERRAL: Evaluation and treatment of foot infection. HISTORY OF PRESENT ILLNESS: The patient is an 81-year-old male. He has a past medical history of coronary artery disease, peripheral vascular disease, atrial fibrillation. He has pacemaker, hyperlipidemia, gout, came in with possible upper GI bleed yesterday. It was also noted that he had a warm, red right foot extending up on his ankle with thickened peeling scaly skin, weeping and superficial ulceration. He said this has been going on and gradually getting worse for about a month. He has not had fevers or chills associated with it, but it is very painful. He denies any injuries to it. He says this has never happened to him before. There has been no unusual environmental exposures, and he has not been on any antibiotics for this, but he has had the noted chronic swelling in his lower extremities. He has been given one dose of vancomycin. He has been afebrile here and has a normal white blood cell count. PAST MEDICAL HISTORY: Otherwise, unremarkable. MEDICATIONS: As mentioned above. ALLERGIES: HE HAS NO KNOWN ANTIMICROBIAL ALLERGIES. SOCIAL HISTORY: He is retired, disabled previously, I believe was living at home. He has smoked now for approximately 60 years. He says he is trying to cut back, but probably still smokes a half pack of cigarettes per day. No history of alcohol or substance abuse. FAMILY HISTORY: Noncontributory. PHYSICAL EXAMINATION: GENERAL: He is a nontoxic, elderly male, in no acute distress. Alert and oriented. VITAL SIGNS: His temperature at present is 98.1, pulse 61, respirations 20, blood pressure 139/64. Weight 103 kg. HEENT: Sclerae are clear. No oral lesions. NECK: Supple. LUNGS: Clear. HEART: Irregular. ABDOMEN: Soft, nontender. Positive bowel sounds. EXTREMITIES: He has swelling in both lower extremities from the knees down with a thickened scaling peely skin all consistent with advanced chronic venous stasis. On the right, there is weeping superficial ulceration all around the right ankle and it is warm and exquisitely Consultation Report [facility] [address] [place]. [address] NAME: LATOYA LIAO : 37 STATUS : ADM IN PAT#: [id number] AGE: 81 ADM/REG DATE : 11/20/16 MR#: [id number] REPORT SERV DATE: 11/21/16 DICTATED BY: LEILA LARSON DATE: 11/21/16 REPORT STATUS : Draft TRANSCRIBED BY: MACIE DATE: 11/21/16 tender. No foul odor associated with it. No deep ulcers or wounds. LABORATORY DATA: White blood cell count is 8.9, hematocrit 25.7, platelets 262, normal differential on the white blood cell count. BUN and creatinine 41 and 1.31. Procalcitonin 0.2. His blood cultures taken yesterday evening are negative thus far. IMPRESSION: I feel this is likely a Strep cellulitis with complicating chronic venous stasis. RECOMMENDATIONS: 1. Bedrest to decrease swelling. 2. Ancef as primary antibiotic since I think this is strep. 3. One to two days of clindamycin in case this is a toxin-producing strep, to clear that faster. 4. I have urged the patient very strongly he needs to stop smoking. Finally, I will follow the patient with you. I appreciate very much your consulting on this patient. LJ Leila Larson M.D. / [id number] CC: MD Nara Vanegas M.D.
[2016-11-20 21:26] LABS: BASOPHILS 0.4 %; BASOPHILS ABSOLUTE 0.03 10/3/uL (0.0-0.16); EOSINOPHILS 0.6 %; EOSINOPHILS ABSOLUTE 0.05 10/3/uL (0.0-0.53); IMMATURE GRANULOCYTES 0.1 %; IMMATURE GRANULOCYTES ABSOLUTE 0.01 10/3/uL (0.0-0.11); LYMPHOCYTES 8.6 %; LYMPHOCYTES ABSOLUTE 0.71 10/3/uL (0.67-4.30); MEAN PLATELET VOLUME 8.3 fL (9.2-13.0); MONOCYTES 15.9 %; MONOCYTES ABSOLUTE 1.32 10/3/uL (0.21-1.20); NEUTROPHILS 74.4 %; NEUTROPHILS ABSOLUTE 6.16 10/3/uL (2.02-8.40); RBC DISTRIBUTION WIDTH 20.9 % (12.0-16.0)
[2016-11-20 21:27] LABS: ER CBC TAT 0 Hrs 05 Mins; HEMATOCRIT 22.8 % (40.0-51.0); HEMOGLOBIN 5.9 g/dL (13.6-17.8); MEAN CORPUS HGB CONC 25.9 g/dL (32.0-36.0); MEAN CORPUSCULAR HEMOGLOB 16.3 pg (26.0-34.0); PLATELET COUNT 258 10/3/uL (150-400); RED CELL COUNT 3.62 10/6/uL (4.7-6.1); WHITE BLOOD CELLS 8.3 10/3/uL (4.5-10.5)
[2016-11-20 21:28] LABS: MANUAL DIFF NO %
[2016-11-20 21:35] LABS: INTERNATIONAL NORMAL RATI 1.3 UNITS (-); PROTIME (NOT ORD) 15.8 SEC (12.0-14.5)
[2016-11-20 21:36] LABS: PARTIAL THROMBO TIME 36.9 SEC (22.5-37.2)
[~2016-11-20 21:41] MED LIST: ASA5GR PO; BUM2 PO; C5 PO; CAP25 PO; CATAFLAM50 MG PO; COLCH6 PO; DIGITEK0.25 MG PO; JOINT HEALT1 PO; LOP50 PO; PRIM250 PO; SIN25 PO; SPIRO25 PO; TOPAMAX100 PO; VOLT50 PO; X5 PO; Z300 PO; ZOCOR20 PO
[2016-11-20 21:43] LABS: ALBUMIN 2.8 G/DL (3.5-5.0); CALCIUM, SERUM 9.1 MG/DL (8.5-10.4); CHLORIDE, SERUM 100 MMOL/L (96-112); CO2 (CARBON DIOXIDE) 29 MMOL/L (24-34); CREATININE 1.41 MG/DL (0.70-1.30); GFR AFRICAN AMERICAN 54 ML/MIN (>=60); GFR NON AFRICAN AMERICAN 47 ML/MIN (>=60); GLUCOSE, SERUM 104 MG/DL (60-99); SGOT(AST) 15 U/L (5-40); SGPT(ALT) 6 U/L (5-65); TOTAL BILIRUBIN 0.6 MG/DL (0-1.2); TOTAL PROTEIN 6.8 G/DL (6.0-8.5)
[2016-11-20 21:44] LABS: A/G RATIO 0.7 (0.7-1.9); ALKALINE PHOSPHATASE 151 U/L (45-117); ANISOCYTOSIS 1+ (5-10/OIF) (0-5/OIF); BUN (BLOOD UREA NITROGEN) 43 MG/DL (6-23); PLATELET ESTIMATE ADQ (ADEQUATE); POTASSIUM, SERUM 3.6 MMOL/L (3.5-5.3); SODIUM, SERUM 136 MMOL/L (135-148)
[2016-11-20 21:45] LABS: ACANTHOCYTES OCC (0-2/OIF); ELLIPTOCYTES 1+ (3-10/OIF) (0-2/OIF); HYPOCHROMIA 3+ (>30/OIF) (0-2/OIF); MICROCYTES 4+ (>50/OIF) (0-5/OIF); POLYCHROMASIA 1+ (2-5/OIF) (0-1/OIF); TARGET CELLS OCC (1-2/OIF) (0-1/OIF)
[2016-11-20] MEDS ORDERED: Z300 PO (22:37)
[2016-11-20] MEDS ORDERED: BUM2 PO (22:37)
[2016-11-20] MEDS ORDERED: CAP25 PO (22:38)
[2016-11-20] MEDS ORDERED: SIN25 PO (22:39)
[2016-11-20] MEDS ORDERED: ZIPSOR25 MG PO (22:40)
[2016-11-20] MEDS ORDERED: PRIM250 PO (22:41)
[2016-11-20] MEDS ORDERED: REQUIP5 PO (22:41)
[2016-11-20] MEDS ORDERED: PRIN10 PO (22:41)
[2016-11-20] MEDS ORDERED: SPIRO25 PO (22:42)
[2016-11-20] MEDS ORDERED: TOPAMAX100 PO (22:42)
[2016-11-20] MEDS ORDERED: ZOCOR20 PO (22:42)
[2016-11-20 23:40] LABS: ASCORBIC ACID (UR NOT ORDER) NEG (NEG); BILIRUBIN, URINE NEGATIVE (NEG); ER URINALYSIS TAT 0 Hrs 00 Mins; KETONE, URINE NEGATIVE (NEG); LEUKOCYTE ESTERASE(NOT OR NEG (NEG); NITRITE (URINE) NEG (NEG); WBC (NOT ORDERED) (RFLEX) 1 (0-5)
[2016-11-21 04:14] LABS: BASOPHILS 0.2 %; BASOPHILS ABSOLUTE 0.02 10/3/uL (0.0-0.16); EOSINOPHILS 0.2 %; EOSINOPHILS ABSOLUTE 0.02 10/3/uL (0.0-0.53); HEMATOCRIT 23.5 % (40.0-51.0); IMMATURE GRANULOCYTES 0.3 %; IMMATURE GRANULOCYTES ABSOLUTE 0.03 10/3/uL (0.0-0.11); LYMPHOCYTES 10.1 %; MEAN CORPUS HGB CONC 26.8 g/dL (32.0-36.0); MEAN CORPUSCULAR HEMOGLOB 17.3 pg (26.0-34.0); MEAN CORPUSCULAR VOLUME 64.4 fL (80-100); MEAN PLATELET VOLUME 8.6 fL (9.2-13.0); MONOCYTES 12.9 %; MONOCYTES ABSOLUTE 1.15 10/3/uL (0.21-1.20); NEUTROPHILS 76.3 %; NEUTROPHILS ABSOLUTE 6.77 10/3/uL (2.02-8.40); PLATELET COUNT 262 10/3/uL (150-400); RBC DISTRIBUTION WIDTH 22.4 % (12.0-16.0); RED CELL COUNT 3.65 10/6/uL (4.7-6.1); WHITE BLOOD CELLS 8.9 10/3/uL (4.5-10.5)
[2016-11-21 04:16] LABS: HEMOGLOBIN 6.3 g/dL (13.6-17.8)
[2016-11-21 04:19] LABS: MANUAL DIFF NO %
[2016-11-21 04:29] LABS: INTERNATIONAL NORMAL RATI 1.3 UNITS (-); PARTIAL THROMBO TIME 37.7 SEC (22.5-37.2)
[2016-11-21 04:41] LABS: A/G RATIO 0.7 (0.7-1.9); ALBUMIN 2.7 G/DL (3.5-5.0); BUN (BLOOD UREA NITROGEN) 41 MG/DL (6-23); CALCIUM, SERUM 9.1 MG/DL (8.5-10.4); CHLORIDE, SERUM 102 MMOL/L (96-112); CO2 (CARBON DIOXIDE) 26 MMOL/L (24-34); CPK 34 U/L (0-200); CREATININE 1.31 MG/DL (0.70-1.30); GFR AFRICAN AMERICAN 59 ML/MIN (>=60); GFR NON AFRICAN AMERICAN 51 ML/MIN (>=60); GLOBULIN 3.8 G/DL (2.5-4.1); GLUCOSE, SERUM 107 MG/DL (60-99); POTASSIUM, SERUM 3.2 MMOL/L (3.5-5.3); SGOT(AST) 14 U/L (5-40); SODIUM, SERUM 138 MMOL/L (135-148); TOTAL PROTEIN 6.5 G/DL (6.0-8.5); TROPONIN I 0.04 NG/ML (<0.05)
[2016-11-21 04:48] LABS: ALKALINE PHOSPHATASE 136 U/L (45-117); CK-MB 0.8 NG/ML; SGPT(ALT) < 6 U/L (5-65); TOTAL BILIRUBIN 1.2 MG/DL (0-1.2)
[2016-11-21 04:52] LABS: PLATELET ESTIMATE ADQ (ADEQUATE)
[2016-11-21 08:11] LABS: HEMATOCRIT 25.7 % (40.0-51.0)
[2016-11-22 05:12] LABS: BASOPHILS 0.5 %; BASOPHILS ABSOLUTE 0.04 10/3/uL (0.0-0.16); EOSINOPHILS 0.7 %; EOSINOPHILS ABSOLUTE 0.06 10/3/uL (0.0-0.53); HEMATOCRIT 24.4 % (40.0-51.0); IMMATURE GRANULOCYTES 0.3 %; IMMATURE GRANULOCYTES ABSOLUTE 0.03 10/3/uL (0.0-0.11); LYMPHOCYTES 8.4 %; LYMPHOCYTES ABSOLUTE 0.72 10/3/uL (0.67-4.30); MEAN CORPUS HGB CONC 26.6 g/dL (32.0-36.0); MEAN CORPUSCULAR HEMOGLOB 17.6 pg (26.0-34.0); MEAN CORPUSCULAR VOLUME 66.1 fL (80-100); MEAN PLATELET VOLUME 8.8 fL (9.2-13.0); MONOCYTES 14.3 %; MONOCYTES ABSOLUTE 1.23 10/3/uL (0.21-1.20); NEUTROPHILS 75.8 %; NEUTROPHILS ABSOLUTE 6.53 10/3/uL (2.02-8.40); PLATELET COUNT 250 10/3/uL (150-400); RBC DISTRIBUTION WIDTH 23.1 % (12.0-16.0); RED CELL COUNT 3.69 10/6/uL (4.7-6.1); WHITE BLOOD CELLS 8.6 10/3/uL (4.5-10.5)
[2016-11-22 05:14] LABS: HEMOGLOBIN 6.5 g/dL (13.6-17.8); MANUAL DIFF NO %
[2016-11-22 05:33] LABS: CALCIUM, SERUM 9.6 MG/DL (8.5-10.4); CHLORIDE, SERUM 103 MMOL/L (96-112); CO2 (CARBON DIOXIDE) 24 MMOL/L (24-34); CREATININE 1.33 MG/DL (0.70-1.30); GFR AFRICAN AMERICAN 58 ML/MIN (>=60); GFR NON AFRICAN AMERICAN 50 ML/MIN (>=60); POTASSIUM, SERUM 3.8 MMOL/L (3.5-5.3); SODIUM, SERUM 137 MMOL/L (135-148)
[2016-11-22 05:35] LABS: BUN (BLOOD UREA NITROGEN) 35 MG/DL (6-23); GLUCOSE, SERUM 82 MG/DL (60-99)
[2016-11-22 06:48] LABS: MICROCYTES 4+ (>50/OIF) (0-5/OIF)
[2016-11-22 06:49] LABS: HYPOCHROMIA 3+ (>30/OIF) (0-2/OIF); PLATELET ESTIMATE ADQ (ADEQUATE); POLYCHROMASIA 1+ (2-5/OIF) (0-1/OIF); TARGET CELLS OCC (1-2/OIF) (0-1/OIF); TEARDROP SHAPED RBCS OCC (0-2/OIF)
[2016-11-22 06:50] LABS: ACANTHOCYTES OCC (0-2/OIF); HELMET CELLS OCC (0-2/OIF); POIKILOCYTOSIS 1+ (5-10/OIF) (0-5/OIF)
[2016-11-22 06:51] LABS: ELLIPTOCYTES 1+ (3-10/OIF) (0-2/OIF); SCHISTOCYTES OCC (0-2/OIF); SPHEROCYTES OCC (0-2/OIF)
[2016-11-22 16:28] LABS: HEMATOCRIT 28.3 % (40.0-51.0); HEMOGLOBIN 7.9 g/dL (13.6-17.8)
[2016-11-23 04:47] LABS: BASOPHILS 0.3 %; BASOPHILS ABSOLUTE 0.03 10/3/uL (0.0-0.16); EOSINOPHILS 0.7 %; EOSINOPHILS ABSOLUTE 0.06 10/3/uL (0.0-0.53); HEMATOCRIT 27.9 % (40.0-51.0); HEMOGLOBIN 7.8 g/dL (13.6-17.8); IMMATURE GRANULOCYTES 0.3 %; IMMATURE GRANULOCYTES ABSOLUTE 0.03 10/3/uL (0.0-0.11); LYMPHOCYTES 9.3 %; LYMPHOCYTES ABSOLUTE 0.81 10/3/uL (0.67-4.30); MEAN PLATELET VOLUME 8.8 fL (9.2-13.0); MONOCYTES 13.2 %; MONOCYTES ABSOLUTE 1.15 10/3/uL (0.21-1.20); NEUTROPHILS 76.2 %; NEUTROPHILS ABSOLUTE 6.64 10/3/uL (2.02-8.40); PLATELET COUNT 255 10/3/uL (150-400); RBC DISTRIBUTION WIDTH 25.5 % (12.0-16.0); RED CELL COUNT 4.02 10/6/uL (4.7-6.1); WHITE BLOOD CELLS 8.7 10/3/uL (4.5-10.5)
[2016-11-23 04:49] LABS: MANUAL DIFF NO %; MEAN CORPUSCULAR HEMOGLOB 19.4 pg (26.0-34.0); MEAN CORPUSCULAR VOLUME 69.4 fL (80-100)
[2016-11-23 04:50] LABS: BUN (BLOOD UREA NITROGEN) 35 MG/DL (6-23); CALCIUM, SERUM 9.8 MG/DL (8.5-10.4); CHLORIDE, SERUM 103 MMOL/L (96-112); CO2 (CARBON DIOXIDE) 24 MMOL/L (24-34); CREATININE 1.19 MG/DL (0.70-1.30); GFR AFRICAN AMERICAN 66 ML/MIN (>=60); GFR NON AFRICAN AMERICAN 57 ML/MIN (>=60); GLUCOSE, SERUM 90 MG/DL (60-99); POTASSIUM, SERUM 4.2 MMOL/L (3.5-5.3); SODIUM, SERUM 134 MMOL/L (135-148)
[2016-11-23 06:10] LABS: MICROCYTES 4+ (>50/OIF) (0-5/OIF); PLATELET ESTIMATE ADQ (ADEQUATE); POLYCHROMASIA 1+ (2-5/OIF) (0-1/OIF)
[2016-11-23 06:11] LABS: ACANTHOCYTES OCC (0-2/OIF); HELMET CELLS OCC (0-2/OIF); HYPOCHROMIA 3+ (>30/OIF) (0-2/OIF); TARGET CELLS OCC (1-2/OIF) (0-1/OIF); TEARDROP SHAPED RBCS FEW (3-10/OIF)
[2016-11-23 06:12] LABS: ELLIPTOCYTES 1+ (3-10/OIF) (0-2/OIF); POIKILOCYTOSIS 1+ (5-10/OIF) (0-5/OIF); SCHISTOCYTES OCC (0-2/OIF); SPHEROCYTES OCC (0-2/OIF)
[2016-11-23 16:21] LABS: HEMATOCRIT 28.6 % (40.0-51.0)
[2016-11-24 06:36] LABS: BASOPHILS 0.5 %; BASOPHILS ABSOLUTE 0.04 10/3/uL (0.0-0.16); EOSINOPHILS ABSOLUTE 0.15 10/3/uL (0.0-0.53); HEMATOCRIT 27.9 % (40.0-51.0); HEMOGLOBIN 7.8 g/dL (13.6-17.8); IMMATURE GRANULOCYTES 0.4 %; IMMATURE GRANULOCYTES ABSOLUTE 0.03 10/3/uL (0.0-0.11); LYMPHOCYTES 11.4 %; LYMPHOCYTES ABSOLUTE 0.86 10/3/uL (0.67-4.30); MANUAL DIFF NO %; MEAN CORPUSCULAR HEMOGLOB 19.5 pg (26.0-34.0); MEAN CORPUSCULAR VOLUME 69.8 fL (80-100); MEAN PLATELET VOLUME 8.6 fL (9.2-13.0); MONOCYTES 13.5 %; MONOCYTES ABSOLUTE 1.02 10/3/uL (0.21-1.20); NEUTROPHILS 72.2 %; NEUTROPHILS ABSOLUTE 5.44 10/3/uL (2.02-8.40); PLATELET COUNT 245 10/3/uL (150-400); RBC DISTRIBUTION WIDTH 26.7 % (12.0-16.0); WHITE BLOOD CELLS 7.5 10/3/uL (4.5-10.5)
[2016-11-24 06:47] LABS: CALCIUM, SERUM 9.8 MG/DL (8.5-10.4); CHLORIDE, SERUM 102 MMOL/L (96-112); CO2 (CARBON DIOXIDE) 24 MMOL/L (24-34); GFR AFRICAN AMERICAN 73 ML/MIN (>=60); GFR NON AFRICAN AMERICAN 63 ML/MIN (>=60); GLUCOSE, SERUM 84 MG/DL (60-99); POTASSIUM, SERUM 4.4 MMOL/L (3.5-5.3); SODIUM, SERUM 134 MMOL/L (135-148)
[2016-11-24 06:48] LABS: BUN (BLOOD UREA NITROGEN) 29 MG/DL (6-23)
[2016-11-24 07:10] LABS: PLATELET ESTIMATE ADQ (ADEQUATE)
[2016-11-24 07:11] LABS: HYPOCHROMIA 3+ (>30/OIF) (0-2/OIF); MACROCYTES 1+ (5-10/OIF) (0-5/OIF)
[2016-11-25 04:58] LABS: HEMATOCRIT 28.5 % (40.0-51.0); HEMOGLOBIN 7.8 g/dL (13.6-17.8); MEAN CORPUS HGB CONC 27.4 g/dL (32.0-36.0); MEAN CORPUSCULAR HEMOGLOB 19.5 pg (26.0-34.0); MEAN CORPUSCULAR VOLUME 71.4 fL (80-100); MEAN PLATELET VOLUME 8.9 fL (9.2-13.0); PLATELET COUNT 241 10/3/uL (150-400); RBC DISTRIBUTION WIDTH 27.6 % (12.0-16.0); RED CELL COUNT 3.99 10/6/uL (4.7-6.1); WHITE BLOOD CELLS 8.1 10/3/uL (4.5-10.5)
[2016-11-25 04:59] LABS: MANUAL DIFF YES %
[2016-11-25 05:11] LABS: CALCIUM, SERUM 9.8 MG/DL (8.5-10.4); CHLORIDE, SERUM 103 MMOL/L (96-112); CO2 (CARBON DIOXIDE) 23 MMOL/L (24-34); CREATININE 1.02 MG/DL (0.70-1.30); GFR AFRICAN AMERICAN 80 ML/MIN (>=60); GFR NON AFRICAN AMERICAN 69 ML/MIN (>=60); GLUCOSE, SERUM 89 MG/DL (60-99); POTASSIUM, SERUM 4.8 MMOL/L (3.5-5.3); SODIUM, SERUM 135 MMOL/L (135-148)
[2016-11-25 05:12] LABS: BUN (BLOOD UREA NITROGEN) 24 MG/DL (6-23)
[2016-11-25 05:21] LABS: PLATELET ESTIMATE ADQ (ADEQUATE)
[2016-11-25 05:22] LABS: HYPOCHROMIA 3+ (>30/OIF) (0-2/OIF); MACROCYTES 1+ (5-10/OIF) (0-5/OIF); POIKILOCYTOSIS 1+ (5-10/OIF) (0-5/OIF); POLYCHROMASIA 1+ (2-5/OIF) (0-1/OIF); TARGET CELLS FEW (3-10/OIF) (0-1/OIF)
[2016-11-25 16:55] LABS: HEMATOCRIT 26.7 % (40.0-51.0); HEMOGLOBIN 7.5 g/dL (13.6-17.8)
[2016-11-26 05:39] LABS: HEMATOCRIT 27.4 % (40.0-51.0); HEMOGLOBIN 7.8 g/dL (13.6-17.8)
[2016-11-26 06:20] LABS: BASOPHILS 0.6 %; BASOPHILS ABSOLUTE 0.05 10/3/uL (0.0-0.16); EOSINOPHILS 1.7 %; EOSINOPHILS ABSOLUTE 0.14 10/3/uL (0.0-0.53); HEMATOCRIT 28.3 % (40.0-51.0); IMMATURE GRANULOCYTES 0.2 %; IMMATURE GRANULOCYTES ABSOLUTE 0.02 10/3/uL (0.0-0.11); LYMPHOCYTES 10.2 %; LYMPHOCYTES ABSOLUTE 0.82 10/3/uL (0.67-4.30); MEAN CORPUS HGB CONC 28.3 g/dL (32.0-36.0); MEAN CORPUSCULAR HEMOGLOB 20.1 pg (26.0-34.0); MEAN CORPUSCULAR VOLUME 70.9 fL (80-100); MEAN PLATELET VOLUME 8.5 fL (9.2-13.0); MONOCYTES 11.8 %; MONOCYTES ABSOLUTE 0.95 10/3/uL (0.21-1.20); NEUTROPHILS 75.5 %; NEUTROPHILS ABSOLUTE 6.04 10/3/uL (2.02-8.40); PLATELET COUNT 241 10/3/uL (150-400); RBC DISTRIBUTION WIDTH 28.4 % (12.0-16.0); RED CELL COUNT 3.99 10/6/uL (4.7-6.1)
[2016-11-26 06:22] LABS: MANUAL DIFF NO %
[2016-11-26 06:34] LABS: BUN (BLOOD UREA NITROGEN) 27 MG/DL (6-23); CALCIUM, SERUM 9.3 MG/DL (8.5-10.4); CHLORIDE, SERUM 103 MMOL/L (96-112); CO2 (CARBON DIOXIDE) 26 MMOL/L (24-34); CREATININE 1.06 MG/DL (0.70-1.30); GFR AFRICAN AMERICAN 76 ML/MIN (>=60); GFR NON AFRICAN AMERICAN 66 ML/MIN (>=60); POTASSIUM, SERUM 4.7 MMOL/L (3.5-5.3); SODIUM, SERUM 134 MMOL/L (135-148)
[2016-11-26 06:36] LABS: GLUCOSE, SERUM 108 MG/DL (60-99)
[2016-11-26 07:54] LABS: PLATELET ESTIMATE ADQ (ADEQUATE)
[2016-11-26 07:55] LABS: ELLIPTOCYTES 1+ (3-10/OIF) (0-2/OIF); HYPOCHROMIA 1+ (3-10/OIF) (0-2/OIF); MICROCYTES 1+ (5-10/OIF) (0-5/OIF); SCHISTOCYTES FEW (3-10/OIF); STOMATOCYTES 1+ (3-10/OIF) (0-2/OIF)
[2016-11-26 16:38] LABS: HEMATOCRIT 29.6 % (40.0-51.0); HEMOGLOBIN 8.2 g/dL (13.6-17.8)
[2016-11-27 05:15] LABS: HEMATOCRIT 28.2 % (40.0-51.0)
[2016-11-27 21:50] LABS: BE (BASE EXCESS) -0.6 MEQ/L (0 +/- 2.5); CARBOXYHEMOGLOBIN 1.6 % (0-3); HCO3 (ACTUAL BICARBONATE) 25.7 MEQ/L (23-27); HEMOBLOGIN CONTENT 8.9 G/DL (14-18); INSTRUMENT SERIAL # 11843; METHEMOGLOBIN 0.5 % (0-3); O2 CONTENT 11.5 VOL% (18-24); PCO2 (CO2 TENSION) 51 MMHG (35-45); PO2 (O2 TENSION) 73 MMHG (79-93); pH 7.32 (7.37-7.43)
[2016-11-27 21:51] LABS: ALLENS TEST Pos; DEVICE NC; OPERATOR ID 13861; SAMPLE Arterial
[2016-11-28 05:25] LABS: BASOPHILS 0.1 %; BASOPHILS ABSOLUTE 0.01 10/3/uL (0.0-0.16); EOSINOPHILS 0.1 %; EOSINOPHILS ABSOLUTE 0.01 10/3/uL (0.0-0.53); HEMATOCRIT 27.6 % (40.0-51.0); HEMOGLOBIN 7.5 g/dL (13.6-17.8); IMMATURE GRANULOCYTES 0.3 %; IMMATURE GRANULOCYTES ABSOLUTE 0.03 10/3/uL (0.0-0.11); LYMPHOCYTES 4.8 %; LYMPHOCYTES ABSOLUTE 0.44 10/3/uL (0.67-4.30); MEAN CORPUS HGB CONC 27.2 g/dL (32.0-36.0); MEAN CORPUSCULAR HEMOGLOB 19.8 pg (26.0-34.0); MEAN PLATELET VOLUME 8.4 fL (9.2-13.0); MONOCYTES 7.2 %; MONOCYTES ABSOLUTE 0.66 10/3/uL (0.21-1.20); NEUTROPHILS 87.5 %; NEUTROPHILS ABSOLUTE 7.98 10/3/uL (2.02-8.40); PLATELET COUNT 295 10/3/uL (150-400); RBC DISTRIBUTION WIDTH 28.7 % (12.0-16.0); RED CELL COUNT 3.78 10/6/uL (4.7-6.1); WHITE BLOOD CELLS 9.1 10/3/uL (4.5-10.5)
[2016-11-28 05:28] LABS: MANUAL DIFF NO %
[2016-11-28 05:36] LABS: A/G RATIO 0.6 (0.7-1.9); ALBUMIN 2.1 G/DL (3.5-5.0); ALKALINE PHOSPHATASE 189 U/L (45-117); BUN (BLOOD UREA NITROGEN) 28 MG/DL (6-23); CALCIUM, SERUM 9.1 MG/DL (8.5-10.4); CHLORIDE, SERUM 101 MMOL/L (96-112); CO2 (CARBON DIOXIDE) 25 MMOL/L (24-34); CREATININE 1.16 MG/DL (0.70-1.30); GFR AFRICAN AMERICAN 69 ML/MIN (>=60); GFR NON AFRICAN AMERICAN 59 ML/MIN (>=60); GLOBULIN 3.8 G/DL (2.5-4.1); GLUCOSE, SERUM 169 MG/DL (60-99); POTASSIUM, SERUM 4.8 MMOL/L (3.5-5.3); SGOT(AST) 22 U/L (5-40); SGPT(ALT) 8 U/L (5-65); SODIUM, SERUM 133 MMOL/L (135-148); TOTAL BILIRUBIN 0.3 MG/DL (0-1.2); TOTAL PROTEIN 5.9 G/DL (6.0-8.5)
[2016-11-28 05:52] LABS: ANISOCYTOSIS 4+ (>50/OIF) (0-5/OIF); HYPOCHROMIA 3+ (>30/OIF) (0-2/OIF); PLATELET ESTIMATE ADQ (ADEQUATE)
[2016-11-30 04:10] LABS: BASOPHILS 0.5 %; BASOPHILS ABSOLUTE 0.05 10/3/uL (0.0-0.16); EOSINOPHILS 1.6 %; EOSINOPHILS ABSOLUTE 0.15 10/3/uL (0.0-0.53); HEMATOCRIT 25.5 % (40.0-51.0); HEMOGLOBIN 7.1 g/dL (13.6-17.8); IMMATURE GRANULOCYTES 0.3 %; IMMATURE GRANULOCYTES ABSOLUTE 0.03 10/3/uL (0.0-0.11); LYMPHOCYTES 10.5 %; LYMPHOCYTES ABSOLUTE 0.98 10/3/uL (0.67-4.30); MEAN CORPUS HGB CONC 27.8 g/dL (32.0-36.0); MEAN CORPUSCULAR HEMOGLOB 19.9 pg (26.0-34.0); MEAN CORPUSCULAR VOLUME 71.4 fL (80-100); MEAN PLATELET VOLUME 8.4 fL (9.2-13.0); MONOCYTES 14.5 %; MONOCYTES ABSOLUTE 1.36 10/3/uL (0.21-1.20); NEUTROPHILS 72.6 %; PLATELET COUNT 325 10/3/uL (150-400); RBC DISTRIBUTION WIDTH 28.2 % (12.0-16.0); RED CELL COUNT 3.57 10/6/uL (4.7-6.1); WHITE BLOOD CELLS 9.4 10/3/uL (4.5-10.5)
[2016-11-30 04:12] LABS: MANUAL DIFF NO %
[2016-11-30 04:25] LABS: CALCIUM, SERUM 9.3 MG/DL (8.5-10.4); CHLORIDE, SERUM 95 MMOL/L (96-112); CO2 (CARBON DIOXIDE) 27 MMOL/L (24-34); CREATININE 1.11 MG/DL (0.70-1.30); GFR AFRICAN AMERICAN 72 ML/MIN (>=60); GFR NON AFRICAN AMERICAN 62 ML/MIN (>=60); POTASSIUM, SERUM 4.5 MMOL/L (3.5-5.3); SODIUM, SERUM 131 MMOL/L (135-148)
[2016-11-30 04:27] LABS: BUN (BLOOD UREA NITROGEN) 34 MG/DL (6-23); GLUCOSE, SERUM 98 MG/DL (60-99)
[2016-11-30 05:31] LABS: HYPOCHROMIA 3+ (>30/OIF) (0-2/OIF); PLATELET ESTIMATE ADQ (ADEQUATE)
[2016-12-01 05:36] LABS: BASOPHILS 0.5 %; BASOPHILS ABSOLUTE 0.04 10/3/uL (0.0-0.16); EOSINOPHILS 2.1 %; EOSINOPHILS ABSOLUTE 0.17 10/3/uL (0.0-0.53); HEMATOCRIT 25.5 % (40.0-51.0); HEMOGLOBIN 7.4 g/dL (13.6-17.8); IMMATURE GRANULOCYTES 0.4 %; IMMATURE GRANULOCYTES ABSOLUTE 0.03 10/3/uL (0.0-0.11); LYMPHOCYTES 12.2 %; LYMPHOCYTES ABSOLUTE 1.01 10/3/uL (0.67-4.30); MANUAL DIFF NO %; MEAN CORPUSCULAR HEMOGLOB 20.5 pg (26.0-34.0); MEAN CORPUSCULAR VOLUME 70.6 fL (80-100); MEAN PLATELET VOLUME 8.4 fL (9.2-13.0); MONOCYTES 11.2 %; MONOCYTES ABSOLUTE 0.93 10/3/uL (0.21-1.20); NEUTROPHILS 73.6 %; NEUTROPHILS ABSOLUTE 6.09 10/3/uL (2.02-8.40); PLATELET COUNT 342 10/3/uL (150-400); RBC DISTRIBUTION WIDTH 28.5 % (12.0-16.0); RED CELL COUNT 3.61 10/6/uL (4.7-6.1); WHITE BLOOD CELLS 8.3 10/3/uL (4.5-10.5)
[2016-12-01 05:53] LABS: BUN (BLOOD UREA NITROGEN) 34 MG/DL (6-23); CALCIUM, SERUM 9.7 MG/DL (8.5-10.4); CHLORIDE, SERUM 102 MMOL/L (96-112); CO2 (CARBON DIOXIDE) 27 MMOL/L (24-34); CREATININE 0.88 MG/DL (0.70-1.30); GFR AFRICAN AMERICAN 94 ML/MIN (>=60); GFR NON AFRICAN AMERICAN 81 ML/MIN (>=60); GLUCOSE, SERUM 85 MG/DL (60-99); POTASSIUM, SERUM 3.9 MMOL/L (3.5-5.3); SODIUM, SERUM 129 MMOL/L (135-148)
[2016-12-01 06:16] LABS: ANISOCYTOSIS 4+ (>50/OIF) (0-5/OIF); HYPOCHROMIA 3+ (>30/OIF) (0-2/OIF); PLATELET ESTIMATE ADQ (ADEQUATE); TARGET CELLS FEW (3-10/OIF) (0-1/OIF)
[2017-01-03] MEDS ORDERED: Z300 PO (19:25)
[2017-01-03] MEDS ORDERED: TEARS PURE OPH (19:25)
[2017-01-03] MEDS ORDERED: LIPITOR40 PO (19:26)
[2017-01-03] MEDS ORDERED: BUM1 PO ×2 (19:26→19:32)
[2017-01-03] MEDS ORDERED: ASAB PO (19:26)
[2017-01-03] MEDS ORDERED: SIN25 PO (19:27)
[2017-01-03] MEDS ORDERED: FERROUS SULF325 M1 PO (19:27)
[2017-01-03] MEDS ORDERED: PRIM250 PO (19:28)
[2017-01-03] MEDS ORDERED: SUCR PO (19:28)
[2017-01-03] MEDS ORDERED: REQUIP5 PO (19:28)
[2017-01-03] MEDS ORDERED: TOPAMAX100 PO (19:29)
[2017-01-03] MEDS ORDERED: FLOMAX4 PO (19:29)
[2017-01-03] MEDS ORDERED: CAP12.5 PO (19:30)
[2017-01-03] MEDS ORDERED: PROTONIX PO (19:30)
[2017-01-03] MEDS ORDERED: TAB-A-VITE PO (19:30)
[2017-01-03] MEDS ORDERED: FLORASTOR250 MG PO (19:30)
[2017-01-03] MEDS ORDERED: DUONEB INH (19:32)
[2017-01-03] MEDS ORDERED: NYSTATPOW TOP (19:32)
[2017-01-03] MEDS ORDERED: K-TABS10 MEQ PO (19:33)
[2017-01-03] MEDS ORDERED: DSS PO (19:36)
[2017-01-03] MEDS ORDERED: T PO (19:36)
[2017-01-03] MEDS ORDERED: ZOFRAN4 PO (19:37)
[2017-01-16] MEDS ORDERED: TEARS PURE OPH (20:21)
[2017-01-16] MEDS ORDERED: REQUIP5 PO (20:22)
[2017-01-16] MEDS ORDERED: SIN25 PO (20:22)
[2017-01-16] MEDS ORDERED: MULTIVIT/MIN PO (20:23)
[2017-01-16] MEDS ORDERED: Z300 PO (20:23)
[2017-01-16] MEDS ORDERED: PROTONIX PO (20:23)
[2017-01-16] MEDS ORDERED: SUCR PO (20:23)
[2017-01-16] MEDS ORDERED: TOPAMAX100 PO (20:24)
[2017-01-16] MEDS ORDERED: FLORASTOR250 MG PO (20:24)
[2017-01-16] MEDS ORDERED: BUM1 PO (20:24)
[2017-01-16] MEDS ORDERED: KDUR10 PO (20:24)
[2017-01-16] MEDS ORDERED: ELIQUIS 5 MG TAB5 MG PO (20:25)
[2017-01-16] MEDS ORDERED: LOP25 PO (20:25)
[2017-01-16] MEDS ORDERED: PRIN5 PO (20:25)
[2017-01-16] MEDS ORDERED: FERROUS SULF325 M1 PO (20:25)
[2017-01-16] MEDS ORDERED: LIPITOR40 PO (20:26)
[2017-01-16] MEDS ORDERED: PRIM250 PO (20:26)
[2017-01-16] MEDS ORDERED: FLOMAX4 PO (20:26)
[2017-01-16] MEDS ORDERED: DSS PO (20:27)
[2017-01-16] MEDS ORDERED: DUONEB INH (20:27)
[2017-01-16] MEDS ORDERED: ZOFRAN4 PO (20:27)
[2017-01-16] MEDS ORDERED: T PO (20:27)
[2017-01-16] MEDS ORDERED: K-TABS10 MEQ PO (20:28)
[2017-01-16] MEDS ORDERED: ASAB PO (20:30)
[2017-01-16] MEDS ORDERED: NYSTATPOW TOP (20:35)
[2017-01-28] MEDS ORDERED: REFRESH OPH SO0.3 ML OPH (18:24)
== END 2016-12-03 15:06 | DRG 270 ==
LOC: ER 21:41 → 7NO 23:23
PROVIDERS: Anesthesiology; Hospitalist; Nurse Practitioner; Surgery
PROC: 30233N1 Transfusion of Nonautologous Red Blood Cells into Peripheral Vein, Percutaneous Approach (ICD-10-PCS; 2016-11-20)
PROC: 0D568ZZ Destruction of Stomach, Via Natural or Artificial Opening Endoscopic (ICD-10-PCS; 2016-11-22)
PROC: B41D1ZZ Fluoroscopy of Aorta and Bilateral Lower Extremity Arteries using Low Osmolar Contrast (ICD-10-PCS; 2016-11-24)
PROC: 0JDQ0ZZ Extraction of Right Foot Subcutaneous Tissue and Fascia, Open Approach (ICD-10-PCS; 2016-11-24)
PROC: 04CK3ZZ Extirpation of Matter from Right Femoral Artery, Percutaneous Approach (ICD-10-PCS; principal; 2016-11-24 08:45)
PROC: 047K3ZZ Dilation of Right Femoral Artery, Percutaneous Approach (ICD-10-PCS; 2016-11-24 15:30)
PROC: 04CM3ZZ Extirpation of Matter from Right Popliteal Artery, Percutaneous Approach (ICD-10-PCS; 2016-11-24 15:30)
PROC: 047R3ZZ Dilation of Right Posterior Tibial Artery, Percutaneous Approach (ICD-10-PCS; 2016-11-24 15:30)
PROC: 0Y670ZZ Detachment at Right Femoral Region, Open Approach (ICD-10-PCS; 2016-11-27)
DX: I70.261 Atherosclerosis of native arteries of extremities with gangrene, right leg (principal); K31.811 Angiodysplasia of stomach and duodenum with bleeding; N17.9 Acute kidney failure, unspecified; I50.32 Chronic diastolic (congestive) heart failure; G20 Parkinson's disease; D62 Acute posthemorrhagic anemia; E87.1 Hypo-osmolality and hyponatremia; L03.115 Cellulitis of right lower limb; L97.319 Non-pressure chronic ulcer of right ankle with unspecified severity; F02.80 Dementia in other diseases classified elsewhere, unspecified severity, without behavioral disturbance, psychotic disturbance, mood disturbance, and anxiety; I70.301 Unspecified atherosclerosis of unspecified type of bypass graft(s) of the extremities, right leg; I25.10 Atherosclerotic heart disease of native coronary artery without angina pectoris; K29.70 Gastritis, unspecified, without bleeding; K29.80 Duodenitis without bleeding; F17.210 Nicotine dependence, cigarettes, uncomplicated; G25.81 Restless legs syndrome; I70.249 Atherosclerosis of native arteries of left leg with ulceration of unspecified site; I87.8 Other specified disorders of veins; R33.9 Retention of urine, unspecified; K21.0 Gastro-esophageal reflux disease with esophagitis; K44.9 Diaphragmatic hernia without obstruction or gangrene; Z95.1 Presence of aortocoronary bypass graft; Z95.0 Presence of cardiac pacemaker; Z66 Do not resuscitate; Z85.820 Personal history of malignant melanoma of skin; Z74.01 Bed confinement status
CPT/HCPCS: 36415; 36430; 37184; 37228; 71010; 73610-LT; 73610-RT; 73630-50; 74000; 75625; 75710; 76937; 80048; 80053; 81001; 82550; 82553; 82805; 82962; 83605; 83735; 83880; 84132; 84145; 84443; 84484; 85014; 85018; 85025; 85610; 85730; 86850; 86900; 86901; 86920; 87040; 87101; 87210; 87493; 87493-59; 88307; 88311; 93005; 93925; 93970; 94640; 97161-GP; 97530-GP; 99285; A9270-GY; C1725; C1750; C1757; C1760; C1769; C1887; C1894; C9113; J0690; J2405; J2795; J2997; J3010; J3370; P9016; Q9967

== ENCOUNTER 2016-12-05 17:53 | Inpatient (IN) | payer OTHER ==
--- NOTE | ~2016-12-05 | HP ---
History And Physical [place] [facility] [place]. [address] NAME: LATOYA LIAO : 37 STATUS : ADM IN LOCATED WITHIN [facility]#: [id number] AGE: 81 ADM/REG DATE : 12/05/16 MR#: [id number] REPORT SERV DATE: 12/05/16 DICTATED BY: KAVIN AQUINO DATE: 12/05/16 REPORT STATUS : Draft TRANSCRIBED BY: MODL DATE: 12/05/16 DATE OF ADMISSION: 12/05/2016 CHIEF COMPLAINT: An 81-year-old male, recently hospitalized with cellulitis, above the knee amputation, and GI bleed, now reporting back to the hospital from [facility] with evidence of pneumonia and acute blood loss anemia. HISTORY OF PRESENT ILLNESS: The patient's history was obtained through careful interview with the patient, coupled with review of [facility] medical records. The patient has had a complicating October and November 2016, has had cellulitis of the leg with peripheral arterial disease and had an eventual right above the knee amputation under the care of Dr. George on 11/27/2016. He was also evaluated for GI bleed with the finding of an angioectasia of the stomach by Dr. Geller on 11/22/2016. The patient was eventually able to be transferred to the [facility] for rehabilitation and care where he is dependent for activities of daily living. Thus far, he has been bedbound without any significant improvement in physical therapy or occupational therapy and has not even been up to wheelchair yet. But over the last several days, he has had increasing lethargy, extreme fatigue, and decreased energy. He admits to dyspnea on exertion with the least amount of effort, no cough though, but he has had pleuritic like chest discomfort in the right lung, a mild discomfort, sharp 4/10 severity, exacerbated by deep breathing. There have been no headaches. No sinus drainage. No abdominal pain. No fevers or chills. No orthostatic symptoms. No dizziness. No bright red blood per rectum. No melena. No diarrhea. The patient has had to use a Jimenez catheter. REVIEW OF SYSTEMS: Otherwise, a 14-point review of systems was obtained and was negative. PAST MEDICAL HISTORY: 1. Coronary artery disease, status post CABG in 2003 and then a stent placed in his vein graft in [address] Lorenzo. 2. Atrial fibrillation. 3. Pacemaker seen by Dr. Keith Hennessy. 4. Restless legs syndrome. 5. Parkinson disease. History And Physical [address] [place]. [address] NAME: LATOYA LIAO : 37 STATUS : ADM IN PAT#: [id number] AGE: 81 ADM/REG DATE : 12/05/16 MR#: [id number] REPORT SERV DATE: 12/05/16 DICTATED BY: KAVIN AQUINO DATE: 12/05/16 REPORT STATUS : Draft TRANSCRIBED BY: MACIE DATE: 12/05/16 6. Lower extremity cellulitis. 7. Gout. 8. Dyslipidemia. 9. Peripheral arterial disease, status post femoral-popliteal bypass and an eventual above the knee amputation on 11/27/2016. 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 Geller on 11/22/2016. PAST SURGICAL HISTORY: 1. CABG in 2003. 2. Pacemaker. 3. Melanoma of the eye. 4. Femoral-popliteal bypass. 5. Right above the knee amputation. ALLERGIES: NO KNOWN DRUG ALLERGIES. SOCIAL HISTORY: Quit smoking. No alcohol abuse. Resides at the [facility] in [place]. He is never . Has no children. He previously got around on a walker but now has been bedbound. He has a sister who is close to him, lives in [place], [place]. FAMILY HISTORY: Father with heart disease. CURRENT MEDICATIONS: Include allopurinol 300 mg p.o. daily, eye drops, Tylenol, aspirin 81 mg p.o. daily, Lipitor 40 mg p.o. daily, Bumex 1 mg p.o. daily, captopril 25 mg p.o. daily, Sinemet tablet p.o. four times a day, Colace 100 mg p.o. b.i.d., iron supplement, nystatin topical, Zofran, Percocet, Protonix 40 mg p.o. b.i.d., potassium 10 mg p.o. b.i.d., primidone 250 mg p.o. at bedtime, Requip 0.5 mg p.o. four times a day, Aldactone 25 mg p.o. daily, sucralfate 1 g p.o. b.i.d., Flomax 0.4 mg p.o. at bedtime, and Topamax 100 mg p.o. daily. PHYSICAL EXAMINATION: VITAL SIGNS: Temperature 98.4, pulse 61, blood pressure 123/52, respiratory rate 20, and O2 saturation 97% on room air. GENERAL: An ill-appearing male, in no evidence of acute distress though. HEENT: Pupils equal, round, and reactive to light. No conjunctival pallor. No scleral icterus. Nares are patent. Oropharynx is clear of obstruction. Moist mucous membranes. NECK: Trachea midline. No thyromegaly. LYMPH: No cervical lymphadenopathy. No supraclavicular lymphadenopathy. RESPIRATORY: The patient has diminished breath sounds in the right base of lung. There may be some dullness to percussion to suggest effusion. He has focal egophony, scattered rhonchi. No wheezes. No rales. The patient has a labored respiratory effort. CARDIOVASCULAR: Regular rate and rhythm. No murmurs, rubs, or gallops. The patient does have left lower extremity edema that is pitting. ABDOMEN: Soft, nontender, nondistended. Normal bowel sounds auscultated throughout. No hepatosplenomegaly. DERMATOLOGICAL: Warm and dry extremities. No pallor. No cyanosis. History And Physical [address] [address] NAME: LATOYA LIAO : 37 STATUS : ADM IN LOCATED [facility]IN [facility]#: [id number] AGE: 81 ADM/REG DATE : 12/05/16 MR#: [id number] REPORT SERV DATE: 12/05/16 DICTATED BY: KAVIN AQUINO DATE: 12/05/16 REPORT STATUS : Draft TRANSCRIBED BY: MACIE DATE: 12/05/16 PSYCHIATRIC: Normal affect. Good mood. Alert and oriented x3. LABORATORY DATA: White blood cell count 8.5, hemoglobin 6, hematocrit 22, and platelets 372. Sodium 134, potassium 4.4, chloride 102, bicarb 28, BUN 40, creatinine 1.04, glucose 98. Troponin 0.05. Albumin 2.2. STUDIES: Chest x-ray by my own evaluation shows right infiltrate, right pleural effusion. ASSESSMENT AND PLAN: 1. Facility-acquired pneumonia with right pleural effusion. Check a CT scan of the chest to better define. Check swallow studies to rule out aspiration risk. Check blood cultures. Place on IV vancomycin, IV cefepime. 2. Acute symptomatic anemia. Transfuse blood. 3. Angioectasias of the stomach, follow hemoglobin and hematocrit, has been seen by Dr. Geller. 4. Recent right above the knee amputation. 5. Parkinson disease. KPL/MODL Kavin Aquino M.D. / [id number] CC: MD Gama Liang M.D.
--- NOTE | ~2016-12-05 | CN ---
Consultation Report [facility] [address] [place]. [address] NAME: LATOYA GEORGE : 37 STATUS : ADM IN [facility]#: [id number] AGE: 81 ADM/REG DATE : 12/05/16 MR#: [id number] REPORT SERV DATE: 12/07/16 DICTATED BY: TRENT NORIEGA IV DATE: 12/07/16 REPORT STATUS : Draft TRANSCRIBED BY: MODJamarcus DATE: 12/07/16 PULMONARY CONSULTATION DATE OF CONSULTATION: 12/07/2016 REASON FOR REQUEST: Abnormality noted on chest CT scan. HISTORY OF PRESENT ILLNESS: History was obtained from the records and from the patient. Mr. 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 The patient recently was discharged from a relatively prolonged hospitalization on 12/03. According to the patient, he had poor oral intake and progressive weakness for which he was sent back. He specifically denies fevers, chills, sweats, purulent sputum production, or hemoptysis. He is not on bronchodilator medications nor is he on supplemental oxygen. As part of his evaluation, a chest CT scan was obtained, which demonstrated right greater than left pleural effusions with some compressive atelectasis. An ill-defined nodular density in the right upper lobe. There were no previous CT scans for comparison. PULMONARY HISTORY: Remarkable for no history of childhood asthma, known adult obstructive lung disease, or previous pneumonia. He has a 65-pack year smoking history having quit at the time of his admission in November. 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 He is up to date on the flu, though does not think he has received the Prevnar 13 vaccination. PAST MEDICAL HISTORY: 1. Coronary artery disease. 2. Peripheral vascular disease. 3. Atrial fibrillation with a pacemaker. 4. Elevated lipids. 5. Parkinson disease. 6. Remote eye melanoma. 7. Leg cellulitis. 8. Angioectasias of the stomach with GI bleed. SURGERIES: 1. Coronary artery bypass grafting in 2003 and a subsequent cardiac stent. 2. Pacemaker placement. 3. Right above knee amputation. 4. Femoropopliteal bypass surgery. ALLERGIES: NO KNOWN DRUG ALLERGIES. Consultation Report [facility] [address] [place]. [address] NAME: LATOYA GEORGE : 37 STATUS : ADM IN PAT#: [id number] AGE: 81 ADM/REG DATE : 12/05/16 MR#: [id number] REPORT SERV DATE: 12/07/16 DICTATED BY: TRENT NORIEGA IV DATE: 12/07/16 REPORT STATUS : Draft TRANSCRIBED BY: MACIE DATE: 12/07/16 CURRENT MEDICATIONS: The patient is on Aldactone 25 mg daily, aspirin 81 mg daily, Bumex 1 mg daily, Capoten 25 mg before breakfast, Carafate 1 g twice a day, iron 300 mg twice a day, Flomax 0.4 mg daily, vancomycin per pharmacy, Lipitor 40 mg daily, Lovenox 40 mg daily, Maxipime 1 g q.6 hours, Mysoline 250 mg at bedtime, potassium 10 mEq daily, Protonix 40 mg twice a day, Requip 0.5 mg four times a day, Sinemet 25/100 four times a day, Topamax 100 mg daily, and Zyloprim 300 mg daily. SOCIAL HISTORY: Remarkable for the tobacco use as above. The patient had social alcohol use, though none recently. There is no history of illicit drug use. He is single, has no children. FAMILY HISTORY: Remarkable for mother with Parkinson disease. Father with unspecified heart disease. REVIEW OF SYSTEMS: 14-systems reviewed. Pertinent positives as noted above. PHYSICAL EXAMINATION: GENERAL: This is a well-developed, elderly male, with decreased visual acuity. Alert and oriented, though at times somewhat confused about some stories. VITAL SIGNS: Temperature is 98, pulse is 62, respiratory rate is 17, saturation 94% on room air, blood pressure is 128/60. HEENT: Patient is normocephalic, atraumatic. 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 There is no drainage from either nasal passage. He has three teeth with a Mallampati III airway and narrowing of the posterior pharyngeal space. NECK: Without any palpable lymphadenopathy or thyromegaly. CHEST: The patient has decreased breath sounds at the extreme bases. There are some minimal basilar inspiratory crackles. No wheezes or rhonchi noted. CARDIOVASCULAR: Jugular venous pulsations appear to be 7 cm. He has 1+ carotid upstrokes with a loud left bruit and a mild right bruit. He has an irregularly irregular S1, S2 with a 2/6 to 3/6 holosystolic murmur heard best at the left axilla. No clear S3 is noted. Peripheral pulses are diminished in his left leg. ABDOMEN: Soft, nontender. There are hypoactive bowel sounds. There is no palpable hepatosplenomegaly or masses. EXTREMITIES: Demonstrate a stump with a dressing on the right. There is no cyanosis, clubbing, or palpable cords on the left leg. There is some 1+ ankle edema. NEUROLOGIC: The patient is able to move all extremities. Strength is 5-/5 and sensation intact to light touch. He has decreased visual acuity as noted. LABS: Reviewed. The chest CT scan demonstrates prominent cardiac silhouette with postoperative changes. There is right greater than left pleural effusion with some basilar atelectasis. There is an ill-defined nodular density in the anterior segment of the right upper lobe that is not visualized on chest radiograph. No significant adenopathy is noted Consultation Report [address] [place]. [address] NAME: LATOYA GEORGE : 37 STATUS : ADM IN [facility]#: [id number] AGE: 81 ADM/REG DATE : 12/05/16 MR#: [id number] REPORT SERV DATE: 12/07/16 DICTATED BY: TRENT NORIEGA IV DATE: 12/07/16 REPORT STATUS : Draft TRANSCRIBED BY: MACIE DATE: 12/07/16 in a noncontrast study. CBC: Hemoglobin is 7.5, hematocrit 25, platelet count was 334,000, white count 7.5. INR is 1.3, PTT is 39.8. Procalcitonin level is 0.11. Chemistry: Sodium 137, potassium 4.4, chloride 107, bicarb 24, BUN 36, creatinine 0.74, glucose of 94. Magnesium yesterday was 1.9. TSH was normal. BNP is 103. ASSESSMENT AND PLAN: 1. Respiratory. The lung nodule is concerning in this age group with a smoking history for primary lung cancer. It is less likely to be area of atelectasis or pneumonia. With his comorbid illnesses, I would not perform further workup at this time rather repeat a CT scan in six to eight weeks and then depending on how he has recovered, decide about further workup at that time. Oxygen will be provided if needed to maintain saturations in the 90% to 94% range. DuoNebs will be given as needed for respiratory distress. The effusions are likely cardiac in origin. I would perform thoracentesis only if they enlarge. 2. Cardiovascular. The patient has a loud murmur of mitral regurgitation. An echocardiogram will be obtained. He does have bilateral bruits worse on the left and would consider carotid ultrasounds. 3. Infectious Disease. I clinically doubt this is an infectious process with the low procalcitonin level and symptoms. I would consider discontinuing antibiotic therapy. Florastor will be given one twice a day. Prevnar 13 will be provided. 4. Hematologic. The patient has a very marginal hemoglobin and hematocrit. He is currently on oral iron. Iron studies will be obtained and would consider IV iron loading. Multivitamin will be given. 5. Gastrointestinal. We will monitor ongoing blood loss. We will continue the Carafate and the Protonix. Mechanical soft diet with chopped meats and gravy will be given with him having only three teeth. 6. Renal. Phosphate level will be obtained and replace if needed. 7. Social. A long discussion with the patient. He was previously a DNR and confirms that he would not want resuscitative measures performed. Thank you for consulting us. We will follow the patient with you. ALEX/MACIE Trent Noriega IV, M.D. / [id number] CC: Skinny Reynolds MD
--- NOTE | ~2016-12-05 | DS ---
Discharge Summary [facility] [address] [place]. [address] NAME: LATOYA LIAO : 37 STATUS : DIS IN PAT#: [id number] AGE: 81 ADM/REG DATE : 12/05/16 MR#: [id number] REPORT SERV DATE: 12/17/16 DICTATED BY: SKINNY REYNOLDS DATE: 12/16/16 REPORT STATUS : Draft TRANSCRIBED BY: MODL DATE: 12/16/16 ADMISSION DATE: 12/05/2016 DISCHARGE DATE: 12/16/2016 ADDENDUM: Please note that this is just an addendum to interim discharge summary dictated by Dr. Ortiz Martines just yesterday. Basically, the patient has been awaiting insurance approval to be transferred to the [facility] and thus the patient did not have any active ongoing issues. Dr. Ortiz Martines have dictated an excellent interim discharge summary just yesterday and the patient is being discharged today after getting insurance approval. There is nothing more to add to Dr. Martines's interim discharge summary. DISCHARGE DESTINATION: The [facility] at [facility]. FOLLOWUP: Please follow up with PCP in the next one to two weeks. DISCHARGE MEDICATIONS: Please see discharge medication reconciliation. A total of 40 minutes spent in coordinating this patient's discharge. Most of which was performed by Dr. Ortiz Martines prior to today. DICTATED BY: Skinny Reynolds MD Noman/MACIE Skinny Reynolds MD / [id number] CC: Skinny Reynolds MD [facility]
--- NOTE | ~2016-12-05 | IDS ---
Interim Discharge Summary [facility] [address] [place]. [address] NAME: LATOYA LIAO : 37 STATUS : ADM IN [facility]#: [id number] AGE: 81 ADM/REG DATE : 12/05/16 MR#: [id number] REPORT SERV DATE: 12/16/16 DICTATED BY: DARRON MARTINES DATE: 12/15/16 REPORT STATUS : Draft TRANSCRIBED BY: MODL DATE: 12/15/16 ADMISSION DATE: 12/05/2016 DISCHARGE DATE: CURRENT DIAGNOSES: 1. Acute blood loss anemia. 2. Iron deficiency, replaced with IV Nulecit. 3. Gastrointestinal bleeding, May admission with EGD findings, esophagitis, gastritis, duodenitis, and angioectasia. 4. Azotemia, multifactorial. 5. Chronic diastolic heart failure. 6. Severe mitral regurgitation. 7. Lung mass, followup CT, recommended by Pulmonary rather than invasive intervention at this time. 8. Parkinson disease. 9. Restless legs syndrome. 10.Dementia. 11.Question history of seizure disorder. 12.Sleep-disordered breathing. 13.Peripheral arterial disease with right above knee amputation. 14.Coronary artery disease with previous stenting and CABG. 15.Sick sinus syndrome with atrial fibrillation and pacemaker placement. 16.Gout. 17.Hyperlipidemia. 18.Hypertension. 19.Urinary retention with current Jimenez. 20.History of ocular melanoma, blind OS, postradiation therapy. 21.Right arm IV site thrombophlebitis. 22.Do not resuscitate status. OPERATIONS AND PROCEDURES: None. PRESENT ILLNESS: This is an 81-year-old white male who was triaged in the emergency room on 12/05/2016 at 1703 hours, sent from rehab with a hemoglobin of 6. Admission vital signs, blood pressure 123/52, temperature 97.8, pulse 61, respirations 20, O2 saturation 97%. After evaluation in the emergency room, he was referred to the Hospitalist Service for admission. He was seen by Dr. Alvin Snow and admitted as described on admission history and physical examination. His recent history is significant having been here on 11/20/2016 to 12/03/2016. Diagnoses on initial discharge summary dictated by Dr. Whitmore: 1. 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 Discharge hemoglobin value 7.5. Interim Discharge Summary [place] [id number] [place]. [address] NAME: LATOYA LIAO : 37 STATUS : ADM IN [facility]#: [id number] AGE: 81 ADM/REG DATE : 12/05/16 MR#: [id number] REPORT SERV DATE: 12/16/16 DICTATED BY: DARRON MARTINES DATE: 12/15/16 REPORT STATUS : Draft TRANSCRIBED BY: MACIE DATE: 12/15/16 2. Right lower extremity cellulitis, treated with antibiotics. 3. Severe right lower extremity peripheral arterial disease with multiple failed revascularization attempts of an occluded right femoral tibial bypass on 11/24/2016, status post right above knee amputation, on 11/27/2016. 4. History of bilateral lower extremity lymphedema. 5. Hyponatremia due to diuretics. 6. Recurrent urinary retention with indwelling Jimenez catheter at discharge. 7. Parkinson's disease with mild dementia. 8. Hard of hearing. 9. History of ocular melanoma. 10.Coronary artery disease with prior coronary artery bypass grafting. 11.Chronic atrial fibrillation with permanent pacemaker placement. 12.Gout. 13.Hyperlipidemia. 14.Hypertension. 15.Chronic diastolic dysfunction without acute exacerbation this admission. 16.Constipation. 17.Acute kidney injury, present on admission, resolved. That dictation was on 12/01/2016. The patient was not discharged until 12/03/[address] Berumen. At rehab, he was noted to be increasingly lethargic and fatigued. The above-mentioned laboratory study was obtained and he was referred here. ADDITIONAL HISTORY: Per Dr. Snow. PHYSICAL EXAMINATION: Per Dr. Snow. ADMISSION LABORATORY: Per Dr. Snow. HOSPITAL COURSE: He was admitted by Dr. Snow with: 1. Facility-acquired pneumonia with right pleural effusion. 2. Acute symptomatic anemia. 3. All of this occurring in the setting of the above-mentioned comorbidities and recent hospitalization. He was admitted to [address] [place] [address]. His hospitalist care was by Dr. Reynolds on 12/06/2016, 12/07/2016, and 12/08/2016, and then the undersigned from 12/09 through 12/15. During the course of his hospitalization to date, he has received 6 units of packed red blood cells. His hemoglobin today is 8.6. One stool for Hemoccult is negative. A serum ferritin on 12/09/2016 was 45. It was 17 in July of this year. He was given IV Nulecit iron replacement. Interim Discharge Summary [place] [address] [place]. [address] NAME: LATOYA LIAO : 37 STATUS : ADM IN PAT#: [id number] AGE: 81 ADM/REG DATE : 12/05/16 MR#: [id number] REPORT SERV DATE: 12/16/16 DICTATED BY: DARRON MARTINES DATE: 12/15/16 REPORT STATUS : Draft TRANSCRIBED BY: MODJamarcus DATE: 12/15/16 He had an abnormal chest x-ray on admission. A CT scan of the chest was done without contrast by Dr. Snow on admission. This demonstrated a worrisome appearance of mass in the right middle lobe. Pulmonary consultation was obtained. He was seen by Dr. Simón Noriega. Dr. Noriega's impression was concerning nodule with a smoking history for primary lung cancer. He thought with his current comorbid illnesses, further workup should not be pursued at this time, rather a repeat CT in 6 to 8 weeks with evaluation, then depending on his overall status. He has been re-evaluated for transfer back to the [facility]. Insurance approval has been delayed. He gratefully has not developed any other acute medical problems during this time except for some azotemia. He no longer has edema and his diuretic therapy has been discontinued. He is rehab ready. BMP today, sodium 139, potassium 4.4, chloride 109, CO2 of 25, BUN 44, creatinine 0.81, glucose 89, calcium 9.9. CBC: White count 8, hemoglobin 8.6, platelets 267,000. Phenobarbital level (on chronic primidone) 6.2. Data will be followed in a.m. Hospitalist care to be assumed by [facility]. DD/MODL Darron Martines M.D. / [id number] CC: Darron Martines M.D.
[~2016-12-05 17:53] MED LIST changes: +PRIN10 PO; +REQUIP5 PO; +ZIPSOR25 MG PO
[2016-12-05 19:06] LABS: BASOPHILS 0.6 %; BASOPHILS ABSOLUTE 0.05 10/3/uL (0.0-0.16); EOSINOPHILS 1.3 %; EOSINOPHILS ABSOLUTE 0.11 10/3/uL (0.0-0.53); ER CBC TAT 0 Hrs 21 Mins; HEMOGLOBIN 6.1 g/dL (13.6-17.8); IMMATURE GRANULOCYTES 0.4 %; IMMATURE GRANULOCYTES ABSOLUTE 0.03 10/3/uL (0.0-0.11); LYMPHOCYTES 12.4 %; LYMPHOCYTES ABSOLUTE 1.05 10/3/uL (0.67-4.30); MANUAL DIFF NO %; MEAN CORPUS HGB CONC 27.7 g/dL (32.0-36.0); MEAN CORPUSCULAR HEMOGLOB 20.1 pg (26.0-34.0); MEAN CORPUSCULAR VOLUME 72.4 fL (80-100); MEAN PLATELET VOLUME 8.2 fL (9.2-13.0); MONOCYTES 12.5 %; MONOCYTES ABSOLUTE 1.06 10/3/uL (0.21-1.20); NEUTROPHILS 72.8 %; NEUTROPHILS ABSOLUTE 6.17 10/3/uL (2.02-8.40); PLATELET COUNT 372 10/3/uL (150-400); RBC DISTRIBUTION WIDTH 29.1 % (12.0-16.0); RED CELL COUNT 3.04 10/6/uL (4.7-6.1); WHITE BLOOD CELLS 8.5 10/3/uL (4.5-10.5)
[2016-12-05 19:14] LABS: INTERNATIONAL NORMAL RATI 1.3 UNITS (-); PROTIME (NOT ORD) 15.8 SEC (12.0-14.5)
[2016-12-05 19:19] LABS: ALBUMIN 2.2 G/DL (3.5-5.0); CALCIUM, SERUM 9.2 MG/DL (8.5-10.4); CHLORIDE, SERUM 102 MMOL/L (96-112); CO2 (CARBON DIOXIDE) 28 MMOL/L (24-34); CREATININE 1.04 MG/DL (0.70-1.30); DIRECT BILIRUBIN 0.1 MG/DL (0.0-0.4); GFR AFRICAN AMERICAN 78 ML/MIN (>=60); GFR NON AFRICAN AMERICAN 67 ML/MIN (>=60); GLUCOSE, SERUM 98 MG/DL (60-99); INDIRECT BILIRUBIN(NOT ORDER) 0.2 MG/DL (0.1-0.9); SGOT(AST) 51 U/L (5-40); SGPT(ALT) 6 U/L (5-65); SODIUM, SERUM 134 MMOL/L (135-148); TOTAL BILIRUBIN 0.3 MG/DL (0-1.2); TOTAL PROTEIN 6.1 G/DL (6.0-8.5)
[2016-12-05 19:20] LABS: ALKALINE PHOSPHATASE 215 U/L (45-117); BUN (BLOOD UREA NITROGEN) 40 MG/DL (6-23); POTASSIUM, SERUM 4.7 MMOL/L (3.5-5.3); TROPONIN I 0.05 NG/ML (<0.05)
[2016-12-05 19:21] LABS: CHEST PAIN PROFILE TAT 0 Hrs 35 Mins
[2016-12-05] MEDS ORDERED: TEARS PURE OPH (19:32)
[2016-12-05] MEDS ORDERED: SIN25 PO (19:33)
[2016-12-05] MEDS ORDERED: REQUIP5 PO (19:33)
[2016-12-05] MEDS ORDERED: FERROUS SULF325 M1 PO (19:34)
[2016-12-05] MEDS ORDERED: Z300 PO (19:34)
[2016-12-05] MEDS ORDERED: ASAB PO (19:34)
[2016-12-05] MEDS ORDERED: CAP25 PO (19:34)
[2016-12-05] MEDS ORDERED: BUM1 PO (19:35)
[2016-12-05] MEDS ORDERED: SPIRO25 PO (19:35)
[2016-12-05] MEDS ORDERED: KDUR10 PO (19:36)
[2016-12-05] MEDS ORDERED: TOPAMAX100 PO (19:36)
[2016-12-05] MEDS ORDERED: SUCR PO (19:36)
[2016-12-05] MEDS ORDERED: PROTONI1 PO (19:36)
[2016-12-05] MEDS ORDERED: IODOSORB TOP (19:37)
[2016-12-05] MEDS ORDERED: PRIM250 PO (19:37)
[2016-12-05] MEDS ORDERED: LIPITOR40 PO (19:38)
[2016-12-05] MEDS ORDERED: FLOMAX4 PO (19:39)
[2016-12-05] MEDS ORDERED: DSS PO (19:40)
[2016-12-05] MEDS ORDERED: ZOFRAN4 PO (19:40)
[2016-12-05] MEDS ORDERED: ACET500CAP PO (19:40)
[2016-12-05] MEDS ORDERED: PCET PO (19:41)
[2016-12-05] MEDS ORDERED: NYSTATPOW TOP (19:42)
[2016-12-05 19:50] LABS: ANISOCYTOSIS 4+ (>50/OIF) (0-5/OIF)
[2016-12-05 19:51] LABS: HYPOCHROMIA 3+ (>30/OIF) (0-2/OIF); TARGET CELLS OCC (1-2/OIF) (0-1/OIF)
[2016-12-05 19:52] LABS: PLATELET ESTIMATE ADQ (ADEQUATE); TEARDROP SHAPED RBCS OCC (0-2/OIF)
[2016-12-05 19:53] LABS: RBC MORPHOLOGY ABN (NORMAL)
[2016-12-05 22:40] LABS: HEMATOCRIT 21.4 % (40.0-51.0)
[2016-12-05 22:41] LABS: HEMOGLOBIN 6.1 g/dL (13.6-17.8)
[2016-12-06 10:10] LABS: BASOPHILS 1.1 %; BASOPHILS ABSOLUTE 0.08 10/3/uL (0.0-0.16); EOSINOPHILS 2.4 %; EOSINOPHILS ABSOLUTE 0.17 10/3/uL (0.0-0.53); IMMATURE GRANULOCYTES 0.3 %; IMMATURE GRANULOCYTES ABSOLUTE 0.02 10/3/uL (0.0-0.11); LYMPHOCYTES ABSOLUTE 0.86 10/3/uL (0.67-4.30); MEAN CORPUS HGB CONC 28.9 g/dL (32.0-36.0); MEAN CORPUSCULAR HEMOGLOB 21.3 pg (26.0-34.0); MEAN CORPUSCULAR VOLUME 73.8 fL (80-100); MEAN PLATELET VOLUME 8.4 fL (9.2-13.0); MONOCYTES 6.4 %; MONOCYTES ABSOLUTE 0.46 10/3/uL (0.21-1.20); NEUTROPHILS 77.8 %; NEUTROPHILS ABSOLUTE 5.59 10/3/uL (2.02-8.40); PLATELET COUNT 355 10/3/uL (150-400); RBC DISTRIBUTION WIDTH 27.5 % (12.0-16.0); RED CELL COUNT 3.28 10/6/uL (4.7-6.1); WHITE BLOOD CELLS 7.2 10/3/uL (4.5-10.5)
[2016-12-06 10:12] LABS: HEMATOCRIT 24.2 % (40.0-51.0); INTERNATIONAL NORMAL RATI 1.3 UNITS (-); PARTIAL THROMBO TIME 37.8 SEC (22.5-37.2); PROTIME (NOT ORD) 16.1 SEC (12.0-14.5)
[2016-12-06 10:13] LABS: MANUAL DIFF NO %
[2016-12-06 10:28] LABS: A/G RATIO 0.6 (0.7-1.9); ALBUMIN 2.2 G/DL (3.5-5.0); ALKALINE PHOSPHATASE 207 U/L (45-117); BUN (BLOOD UREA NITROGEN) 38 MG/DL (6-23); CALCIUM, SERUM 9.3 MG/DL (8.5-10.4); CHLORIDE, SERUM 105 MMOL/L (96-112); CO2 (CARBON DIOXIDE) 25 MMOL/L (24-34); CREATININE 0.95 MG/DL (0.70-1.30); GFR AFRICAN AMERICAN 87 ML/MIN (>=60); GFR NON AFRICAN AMERICAN 75 ML/MIN (>=60); GLOBULIN 3.8 G/DL (2.5-4.1); GLUCOSE, SERUM 145 MG/DL (60-99); POTASSIUM, SERUM 4.5 MMOL/L (3.5-5.3); SGOT(AST) 42 U/L (5-40); SGPT(ALT) 12 U/L (5-65); SODIUM, SERUM 134 MMOL/L (135-148); TOTAL BILIRUBIN 0.6 MG/DL (0-1.2); TROPONIN I 0.05 NG/ML (<0.05)
[2016-12-06 10:48] LABS: PLATELET ESTIMATE ADQ (ADEQUATE)
[2016-12-06 16:29] LABS: HEMATOCRIT 22.9 % (40.0-51.0)
[2016-12-06 16:31] LABS: HEMOGLOBIN 6.8 g/dL (13.6-17.8)
[2016-12-06 23:35] LABS: HEMOGLOBIN 7.5 g/dL (13.6-17.8)
[2016-12-07 04:40] LABS: BASOPHILS 1.1 %; BASOPHILS ABSOLUTE 0.08 10/3/uL (0.0-0.16); EOSINOPHILS 2.7 %; HEMOGLOBIN 7.5 g/dL (13.6-17.8); IMMATURE GRANULOCYTES 0.4 %; IMMATURE GRANULOCYTES ABSOLUTE 0.03 10/3/uL (0.0-0.11); LYMPHOCYTES ABSOLUTE 1.05 10/3/uL (0.67-4.30); MEAN CORPUSCULAR HEMOGLOB 22.7 pg (26.0-34.0); MEAN CORPUSCULAR VOLUME 75.5 fL (80-100); MEAN PLATELET VOLUME 8.2 fL (9.2-13.0); MONOCYTES 10.6 %; NEUTROPHILS 71.2 %; NEUTROPHILS ABSOLUTE 5.36 10/3/uL (2.02-8.40); PLATELET COUNT 334 10/3/uL (150-400); RBC DISTRIBUTION WIDTH 26.8 % (12.0-16.0); RED CELL COUNT 3.31 10/6/uL (4.7-6.1); WHITE BLOOD CELLS 7.5 10/3/uL (4.5-10.5)
[2016-12-07 04:48] LABS: MANUAL DIFF NO %
[2016-12-07 04:49] LABS: BUN (BLOOD UREA NITROGEN) 36 MG/DL (6-23); CALCIUM, SERUM 9.6 MG/DL (8.5-10.4); CHLORIDE, SERUM 107 MMOL/L (96-112); CO2 (CARBON DIOXIDE) 24 MMOL/L (24-34); CREATININE 0.74 MG/DL (0.70-1.30); GFR AFRICAN AMERICAN 101 ML/MIN (>=60); GFR NON AFRICAN AMERICAN 87 ML/MIN (>=60); POTASSIUM, SERUM 4.4 MMOL/L (3.5-5.3); SODIUM, SERUM 137 MMOL/L (135-148)
[2016-12-07 04:50] LABS: GLUCOSE, SERUM 94 MG/DL (60-99)
[2016-12-07 05:22] LABS: PLATELET ESTIMATE ADQ (ADEQUATE)
[2016-12-07 05:23] LABS: HYPOCHROMIA 1+ (3-10/OIF) (0-2/OIF); MACROCYTES 1+ (5-10/OIF) (0-5/OIF); POLYCHROMASIA 1+ (2-5/OIF) (0-1/OIF)
[2016-12-07 05:24] LABS: ELLIPTOCYTES 1+ (3-10/OIF) (0-2/OIF)
[2016-12-07 05:45] LABS: PROCALCITONIN 0.11 ng/mL (<0.5)
[2016-12-07 14:44] LABS: IRON BINDING CAPACITY 269 MCG/DL (250-450); IRON, SERUM 54 MCG/DL (35-150)
[2016-12-08 04:33] LABS: BASOPHILS 1.2 %; BASOPHILS ABSOLUTE 0.09 10/3/uL (0.0-0.16); EOSINOPHILS 3.1 %; EOSINOPHILS ABSOLUTE 0.24 10/3/uL (0.0-0.53); HEMATOCRIT 25.4 % (40.0-51.0); HEMOGLOBIN 7.5 g/dL (13.6-17.8); IMMATURE GRANULOCYTES 0.6 %; IMMATURE GRANULOCYTES ABSOLUTE 0.05 10/3/uL (0.0-0.11); LYMPHOCYTES 13.1 %; LYMPHOCYTES ABSOLUTE 1.02 10/3/uL (0.67-4.30); MEAN CORPUS HGB CONC 29.5 g/dL (32.0-36.0); MEAN CORPUSCULAR HEMOGLOB 22.7 pg (26.0-34.0); MEAN PLATELET VOLUME 8.3 fL (9.2-13.0); MONOCYTES ABSOLUTE 0.78 10/3/uL (0.21-1.20); NEUTROPHILS ABSOLUTE 5.63 10/3/uL (2.02-8.40); PLATELET COUNT 336 10/3/uL (150-400); RBC DISTRIBUTION WIDTH 27.6 % (12.0-16.0); WHITE BLOOD CELLS 7.8 10/3/uL (4.5-10.5)
[2016-12-08 04:34] LABS: MANUAL DIFF NO %
[2016-12-08 04:48] LABS: BUN (BLOOD UREA NITROGEN) 37 MG/DL (6-23); CALCIUM, SERUM 9.6 MG/DL (8.5-10.4); CHLORIDE, SERUM 107 MMOL/L (96-112); CO2 (CARBON DIOXIDE) 23 MMOL/L (24-34); CREATININE 0.93 MG/DL (0.70-1.30); GFR AFRICAN AMERICAN 90 ML/MIN (>=60); GFR NON AFRICAN AMERICAN 77 ML/MIN (>=60); GLUCOSE, SERUM 110 MG/DL (60-99); POTASSIUM, SERUM 4.4 MMOL/L (3.5-5.3); SODIUM, SERUM 138 MMOL/L (135-148)
[2016-12-08 04:51] LABS: PLATELET ESTIMATE ADQ (ADEQUATE)
[2016-12-08 04:53] LABS: POLYCHROMASIA 1+ (2-5/OIF) (0-1/OIF)
[2016-12-09 06:04] LABS: BASOPHILS 1.1 %; BASOPHILS ABSOLUTE 0.08 10/3/uL (0.0-0.16); EOSINOPHILS 3.3 %; EOSINOPHILS ABSOLUTE 0.24 10/3/uL (0.0-0.53); HEMOGLOBIN 7.2 g/dL (13.6-17.8); IMMATURE GRANULOCYTES 0.4 %; IMMATURE GRANULOCYTES ABSOLUTE 0.03 10/3/uL (0.0-0.11); LYMPHOCYTES 16.5 %; LYMPHOCYTES ABSOLUTE 1.19 10/3/uL (0.67-4.30); MANUAL DIFF NO %; MEAN CORPUS HGB CONC 28.8 g/dL (32.0-36.0); MEAN CORPUSCULAR HEMOGLOB 22.6 pg (26.0-34.0); MEAN CORPUSCULAR VOLUME 78.6 fL (80-100); MEAN PLATELET VOLUME 8.3 fL (9.2-13.0); MONOCYTES ABSOLUTE 0.65 10/3/uL (0.21-1.20); NEUTROPHILS 69.7 %; NEUTROPHILS ABSOLUTE 5.04 10/3/uL (2.02-8.40); PLATELET COUNT 332 10/3/uL (150-400); RBC DISTRIBUTION WIDTH 28.4 % (12.0-16.0); RED CELL COUNT 3.18 10/6/uL (4.7-6.1); WHITE BLOOD CELLS 7.2 10/3/uL (4.5-10.5)
[2016-12-09 06:23] LABS: CALCIUM, SERUM 9.6 MG/DL (8.5-10.4); CHLORIDE, SERUM 108 MMOL/L (96-112); CO2 (CARBON DIOXIDE) 23 MMOL/L (24-34); CREATININE 0.79 MG/DL (0.70-1.30); GFR AFRICAN AMERICAN 98 ML/MIN (>=60); GFR NON AFRICAN AMERICAN 85 ML/MIN (>=60); GLUCOSE, SERUM 88 MG/DL (60-99); PHOSPHORUS, SERUM 2.9 MG/DL (2.5-4.5); POTASSIUM, SERUM 4.3 MMOL/L (3.5-5.3); SODIUM, SERUM 137 MMOL/L (135-148); VANCOMYCIN TROUGH 31.4 MCG/ML (10.0-20.0)
[2016-12-09 06:24] LABS: ANISOCYTOSIS 4+ (>50/OIF) (0-5/OIF); BUN (BLOOD UREA NITROGEN) 31 MG/DL (6-23)
[2016-12-09 06:25] LABS: TARGET CELLS FEW (3-10/OIF) (0-1/OIF); TEARDROP SHAPED RBCS FEW (3-10/OIF)
[2016-12-09 06:44] LABS: PROCALCITONIN 0.06 ng/mL (<0.5)
[2016-12-09 19:15] LABS: FERRITIN 45 NG/ML (26-388)
[2016-12-10 04:42] LABS: BASOPHILS 1.2 %; BASOPHILS ABSOLUTE 0.09 10/3/uL (0.0-0.16); EOSINOPHILS 2.8 %; EOSINOPHILS ABSOLUTE 0.22 10/3/uL (0.0-0.53); HEMATOCRIT 26.6 % (40.0-51.0); HEMOGLOBIN 7.9 g/dL (13.6-17.8); IMMATURE GRANULOCYTES 0.3 %; IMMATURE GRANULOCYTES ABSOLUTE 0.02 10/3/uL (0.0-0.11); LYMPHOCYTES 13.8 %; LYMPHOCYTES ABSOLUTE 1.07 10/3/uL (0.67-4.30); MANUAL DIFF NO %; MEAN CORPUS HGB CONC 29.7 g/dL (32.0-36.0); MEAN CORPUSCULAR HEMOGLOB 23.3 pg (26.0-34.0); MEAN CORPUSCULAR VOLUME 78.5 fL (80-100); MEAN PLATELET VOLUME 8.1 fL (9.2-13.0); MONOCYTES 10.7 %; MONOCYTES ABSOLUTE 0.83 10/3/uL (0.21-1.20); NEUTROPHILS 71.2 %; NEUTROPHILS ABSOLUTE 5.52 10/3/uL (2.02-8.40); PLATELET COUNT 308 10/3/uL (150-400); RBC DISTRIBUTION WIDTH 27.2 % (12.0-16.0); RED CELL COUNT 3.39 10/6/uL (4.7-6.1); WHITE BLOOD CELLS 7.8 10/3/uL (4.5-10.5)
[2016-12-10 05:02] LABS: BUN (BLOOD UREA NITROGEN) 32 MG/DL (6-23); CALCIUM, SERUM 9.7 MG/DL (8.5-10.4); CHLORIDE, SERUM 106 MMOL/L (96-112); CO2 (CARBON DIOXIDE) 23 MMOL/L (24-34); GFR AFRICAN AMERICAN 93 ML/MIN (>=60); GFR NON AFRICAN AMERICAN 80 ML/MIN (>=60); GLUCOSE, SERUM 88 MG/DL (60-99); POTASSIUM, SERUM 4.4 MMOL/L (3.5-5.3); SODIUM, SERUM 137 MMOL/L (135-148)
[2016-12-10 05:24] LABS: PLATELET ESTIMATE ADQ (ADEQUATE); TARGET CELLS OCC (1-2/OIF) (0-1/OIF)
[2016-12-11 05:01] LABS: BASOPHILS ABSOLUTE 0.08 10/3/uL (0.0-0.16); EOSINOPHILS 2.6 %; EOSINOPHILS ABSOLUTE 0.21 10/3/uL (0.0-0.53); HEMATOCRIT 26.3 % (40.0-51.0); HEMOGLOBIN 7.8 g/dL (13.6-17.8); IMMATURE GRANULOCYTES 0.4 %; IMMATURE GRANULOCYTES ABSOLUTE 0.03 10/3/uL (0.0-0.11); LYMPHOCYTES ABSOLUTE 1.06 10/3/uL (0.67-4.30); MEAN CORPUS HGB CONC 29.7 g/dL (32.0-36.0); MEAN CORPUSCULAR HEMOGLOB 23.6 pg (26.0-34.0); MEAN CORPUSCULAR VOLUME 79.5 fL (80-100); MEAN PLATELET VOLUME 8.2 fL (9.2-13.0); MONOCYTES 10.6 %; MONOCYTES ABSOLUTE 0.86 10/3/uL (0.21-1.20); NEUTROPHILS 72.4 %; NEUTROPHILS ABSOLUTE 5.91 10/3/uL (2.02-8.40); PLATELET COUNT 321 10/3/uL (150-400); RED CELL COUNT 3.31 10/6/uL (4.7-6.1); RETICULOCYTE COUNT 2.8 % (0.5-2.5); RETICULOCYTE COUNT ABSOLUTE 92.3 10/3/uL (20.2-119.8); WHITE BLOOD CELLS 8.2 10/3/uL (4.5-10.5)
[2016-12-11 05:05] LABS: MANUAL DIFF NO %
[2016-12-11 05:12] LABS: CALCIUM, SERUM 9.6 MG/DL (8.5-10.4); CHLORIDE, SERUM 106 MMOL/L (96-112); CO2 (CARBON DIOXIDE) 27 MMOL/L (24-34); CREATININE 0.85 MG/DL (0.70-1.30); GFR AFRICAN AMERICAN 95 ML/MIN (>=60); GFR NON AFRICAN AMERICAN 82 ML/MIN (>=60); GLUCOSE, SERUM 89 MG/DL (60-99); POTASSIUM, SERUM 4.2 MMOL/L (3.5-5.3); SODIUM, SERUM 141 MMOL/L (135-148)
[2016-12-11 05:13] LABS: BUN (BLOOD UREA NITROGEN) 36 MG/DL (6-23)
[2016-12-11 05:57] LABS: PLATELET ESTIMATE ADQ (ADEQUATE)
[2016-12-11 05:58] LABS: MICROCYTES 1+ (5-10/OIF) (0-5/OIF); POLYCHROMASIA 1+ (2-5/OIF) (0-1/OIF)
[2016-12-12 06:32] LABS: CALCIUM, SERUM 9.9 MG/DL (8.5-10.4); CHLORIDE, SERUM 107 MMOL/L (96-112); CO2 (CARBON DIOXIDE) 26 MMOL/L (24-34); GFR AFRICAN AMERICAN 82 ML/MIN (>=60); GFR NON AFRICAN AMERICAN 71 ML/MIN (>=60); GLUCOSE, SERUM 94 MG/DL (60-99); POTASSIUM, SERUM 4.2 MMOL/L (3.5-5.3); SODIUM, SERUM 139 MMOL/L (135-148)
[2016-12-12 06:33] LABS: BUN (BLOOD UREA NITROGEN) 40 MG/DL (6-23)
[2016-12-12 06:39] LABS: BASOPHILS 0.6 %; BASOPHILS ABSOLUTE 0.05 10/3/uL (0.0-0.16); EOSINOPHILS 1.8 %; EOSINOPHILS ABSOLUTE 0.14 10/3/uL (0.0-0.53); HEMATOCRIT 25.9 % (40.0-51.0); HEMOGLOBIN 7.6 g/dL (13.6-17.8); IMMATURE GRANULOCYTES 0.4 %; IMMATURE GRANULOCYTES ABSOLUTE 0.03 10/3/uL (0.0-0.11); LYMPHOCYTES 13.6 %; LYMPHOCYTES ABSOLUTE 1.07 10/3/uL (0.67-4.30); MEAN CORPUS HGB CONC 29.3 g/dL (32.0-36.0); MEAN CORPUSCULAR HEMOGLOB 23.6 pg (26.0-34.0); MEAN CORPUSCULAR VOLUME 80.4 fL (80-100); MEAN PLATELET VOLUME 8.6 fL (9.2-13.0); MONOCYTES 12.1 %; MONOCYTES ABSOLUTE 0.95 10/3/uL (0.21-1.20); NEUTROPHILS 71.5 %; NEUTROPHILS ABSOLUTE 5.61 10/3/uL (2.02-8.40); PLATELET COUNT 324 10/3/uL (150-400); RBC DISTRIBUTION WIDTH 28.5 % (12.0-16.0); RED CELL COUNT 3.22 10/6/uL (4.7-6.1); WHITE BLOOD CELLS 7.9 10/3/uL (4.5-10.5)
[2016-12-12 06:41] LABS: MANUAL DIFF NO %
[2016-12-12 07:05] LABS: PLATELET ESTIMATE ADQ (ADEQUATE)
[2016-12-12 07:06] LABS: ANISOCYTOSIS 4+ (>50/OIF) (0-5/OIF); RBC MORPHOLOGY ABN (NORMAL)
[2016-12-12 13:15] LABS: HEMATOCRIT 24.8 % (40.0-51.0); HEMOGLOBIN 7.4 g/dL (13.6-17.8)
[2016-12-13 19:53] LABS: HEMOGLOBIN 7.9 g/dL (13.6-17.8)
[2016-12-14 05:43] LABS: BASOPHILS 0.6 %; BASOPHILS ABSOLUTE 0.04 10/3/uL (0.0-0.16); EOSINOPHILS 3.1 %; EOSINOPHILS ABSOLUTE 0.21 10/3/uL (0.0-0.53); HEMATOCRIT 26.6 % (40.0-51.0); HEMOGLOBIN 7.9 g/dL (13.6-17.8); IMMATURE GRANULOCYTES 0.3 %; IMMATURE GRANULOCYTES ABSOLUTE 0.02 10/3/uL (0.0-0.11); LYMPHOCYTES 14.8 %; LYMPHOCYTES ABSOLUTE 1.01 10/3/uL (0.67-4.30); MEAN CORPUS HGB CONC 29.7 g/dL (32.0-36.0); MEAN CORPUSCULAR HEMOGLOB 24.6 pg (26.0-34.0); MEAN PLATELET VOLUME 8.5 fL (9.2-13.0); MONOCYTES 10.2 %; NEUTROPHILS ABSOLUTE 4.85 10/3/uL (2.02-8.40); PLATELET COUNT 294 10/3/uL (150-400); RBC DISTRIBUTION WIDTH 28.8 % (12.0-16.0); RED CELL COUNT 3.21 10/6/uL (4.7-6.1); WHITE BLOOD CELLS 6.8 10/3/uL (4.5-10.5)
[2016-12-14 05:46] LABS: MANUAL DIFF NO %; MEAN CORPUSCULAR VOLUME 82.9 fL (80-100)
[2016-12-14 05:50] LABS: CALCIUM, SERUM 9.8 MG/DL (8.5-10.4); CHLORIDE, SERUM 109 MMOL/L (96-112); CO2 (CARBON DIOXIDE) 24 MMOL/L (24-34); CREATININE 0.89 MG/DL (0.70-1.30); GFR AFRICAN AMERICAN 94 ML/MIN (>=60); GFR NON AFRICAN AMERICAN 81 ML/MIN (>=60); GLUCOSE, SERUM 92 MG/DL (60-99); POTASSIUM, SERUM 4.6 MMOL/L (3.5-5.3); SODIUM, SERUM 140 MMOL/L (135-148)
[2016-12-14 05:53] LABS: BUN (BLOOD UREA NITROGEN) 44 MG/DL (6-23)
[2016-12-14 06:34] LABS: ANISOCYTOSIS 4+ (>50/OIF) (0-5/OIF); PLATELET ESTIMATE ADQ (ADEQUATE); POLYCHROMASIA 1+ (2-5/OIF) (0-1/OIF)
[2016-12-14 06:35] LABS: ELLIPTOCYTES 1+ (3-10/OIF) (0-2/OIF); GIANT PLATELET OCC; MACROCYTES 1+ (5-10/OIF) (0-5/OIF); MICROCYTES 1+ (5-10/OIF) (0-5/OIF); SPHEROCYTES OCC (0-2/OIF); TARGET CELLS FEW (3-10/OIF) (0-1/OIF); TEARDROP SHAPED RBCS FEW (3-10/OIF)
[2016-12-14 06:36] LABS: HELMET CELLS OCC (0-2/OIF); POIKILOCYTOSIS 1+ (5-10/OIF) (0-5/OIF); SCHISTOCYTES OCC (0-2/OIF)
[2016-12-15 05:35] LABS: BASOPHILS 0.5 %; BASOPHILS ABSOLUTE 0.04 10/3/uL (0.0-0.16); BUN (BLOOD UREA NITROGEN) 44 MG/DL (6-23); CALCIUM, SERUM 9.9 MG/DL (8.5-10.4); CHLORIDE, SERUM 109 MMOL/L (96-112); CO2 (CARBON DIOXIDE) 25 MMOL/L (24-34); CREATININE 0.81 MG/DL (0.70-1.30); EOSINOPHILS 3.3 %; EOSINOPHILS ABSOLUTE 0.26 10/3/uL (0.0-0.53); GFR AFRICAN AMERICAN 97 ML/MIN (>=60); GFR NON AFRICAN AMERICAN 84 ML/MIN (>=60); GLUCOSE, SERUM 89 MG/DL (60-99); HEMATOCRIT 27.8 % (40.0-51.0); HEMOGLOBIN 8.6 g/dL (13.6-17.8); IMMATURE GRANULOCYTES 0.3 %; IMMATURE GRANULOCYTES ABSOLUTE 0.02 10/3/uL (0.0-0.11); LYMPHOCYTES 11.1 %; LYMPHOCYTES ABSOLUTE 0.88 10/3/uL (0.67-4.30); MEAN CORPUS HGB CONC 30.9 g/dL (32.0-36.0); MEAN PLATELET VOLUME 8.6 fL (9.2-13.0); MONOCYTES 10.2 %; MONOCYTES ABSOLUTE 0.81 10/3/uL (0.21-1.20); NEUTROPHILS 74.6 %; NEUTROPHILS ABSOLUTE 5.95 10/3/uL (2.02-8.40); PLATELET COUNT 267 10/3/uL (150-400); POTASSIUM, SERUM 4.4 MMOL/L (3.5-5.3); RBC DISTRIBUTION WIDTH 27.6 % (12.0-16.0); RED CELL COUNT 3.31 10/6/uL (4.7-6.1); SODIUM, SERUM 139 MMOL/L (135-148)
[2016-12-15 05:40] LABS: MANUAL DIFF NO %
[2016-12-15 06:20] LABS: PLATELET ESTIMATE ADQ (ADEQUATE); POLYCHROMASIA 1+ (2-5/OIF) (0-1/OIF)
[2016-12-15 12:13] LABS: PHENOBARBITAL 6.2 MCG/ML (15.0-40.0)
[2016-12-16 04:49] LABS: BASOPHILS 0.5 %; BASOPHILS ABSOLUTE 0.04 10/3/uL (0.0-0.16); EOSINOPHILS 2.4 %; EOSINOPHILS ABSOLUTE 0.19 10/3/uL (0.0-0.53); HEMATOCRIT 27.7 % (40.0-51.0); HEMOGLOBIN 8.4 g/dL (13.6-17.8); IMMATURE GRANULOCYTES 0.3 %; IMMATURE GRANULOCYTES ABSOLUTE 0.02 10/3/uL (0.0-0.11); LYMPHOCYTES 11.2 %; LYMPHOCYTES ABSOLUTE 0.89 10/3/uL (0.67-4.30); MEAN CORPUS HGB CONC 30.3 g/dL (32.0-36.0); MEAN CORPUSCULAR HEMOGLOB 25.8 pg (26.0-34.0); MEAN PLATELET VOLUME 8.4 fL (9.2-13.0); MONOCYTES 9.6 %; MONOCYTES ABSOLUTE 0.76 10/3/uL (0.21-1.20); NEUTROPHILS ABSOLUTE 6.05 10/3/uL (2.02-8.40); PLATELET COUNT 254 10/3/uL (150-400); RBC DISTRIBUTION WIDTH 27.7 % (12.0-16.0); RED CELL COUNT 3.26 10/6/uL (4.7-6.1)
[2016-12-16 04:50] LABS: MANUAL DIFF NO %
[2016-12-16 05:02] LABS: BUN (BLOOD UREA NITROGEN) 39 MG/DL (6-23); CALCIUM, SERUM 9.7 MG/DL (8.5-10.4); CHLORIDE, SERUM 105 MMOL/L (96-112); CO2 (CARBON DIOXIDE) 25 MMOL/L (24-34); GFR AFRICAN AMERICAN 98 ML/MIN (>=60); GFR NON AFRICAN AMERICAN 84 ML/MIN (>=60); GLUCOSE, SERUM 90 MG/DL (60-99); POTASSIUM, SERUM 4.3 MMOL/L (3.5-5.3); SODIUM, SERUM 132 MMOL/L (135-148)
[2016-12-16 05:12] LABS: MICROCYTES 1+ (5-10/OIF) (0-5/OIF); PLATELET ESTIMATE ADQ (ADEQUATE)
[2016-12-16 05:13] LABS: HYPOCHROMIA 1+ (3-10/OIF) (0-2/OIF)
[2017-01-03] MEDS ORDERED: Z300 PO (19:25)
[2017-01-03] MEDS ORDERED: TEARS PURE OPH (19:25)
[2017-01-03] MEDS ORDERED: LIPITOR40 PO (19:26)
[2017-01-03] MEDS ORDERED: BUM1 PO ×2 (19:26→19:32)
[2017-01-03] MEDS ORDERED: ASAB PO (19:26)
[2017-01-03] MEDS ORDERED: FERROUS SULF325 M1 PO (19:27)
[2017-01-03] MEDS ORDERED: SIN25 PO (19:27)
[2017-01-03] MEDS ORDERED: SUCR PO (19:28)
[2017-01-03] MEDS ORDERED: REQUIP5 PO (19:28)
[2017-01-03] MEDS ORDERED: PRIM250 PO (19:28)
[2017-01-03] MEDS ORDERED: TOPAMAX100 PO (19:29)
[2017-01-03] MEDS ORDERED: FLOMAX4 PO (19:29)
[2017-01-03] MEDS ORDERED: CAP12.5 PO (19:30)
[2017-01-03] MEDS ORDERED: FLORASTOR250 MG PO (19:30)
[2017-01-03] MEDS ORDERED: PROTONIX PO (19:30)
[2017-01-03] MEDS ORDERED: TAB-A-VITE PO (19:30)
[2017-01-03] MEDS ORDERED: NYSTATPOW TOP (19:32)
[2017-01-03] MEDS ORDERED: DUONEB INH (19:32)
[2017-01-03] MEDS ORDERED: K-TABS10 MEQ PO (19:33)
[2017-01-03] MEDS ORDERED: DSS PO (19:36)
[2017-01-03] MEDS ORDERED: T PO (19:36)
[2017-01-03] MEDS ORDERED: ZOFRAN4 PO (19:37)
[2017-01-16] MEDS ORDERED: TEARS PURE OPH (20:21)
[2017-01-16] MEDS ORDERED: SIN25 PO (20:22)
[2017-01-16] MEDS ORDERED: REQUIP5 PO (20:22)
[2017-01-16] MEDS ORDERED: PROTONIX PO (20:23)
[2017-01-16] MEDS ORDERED: MULTIVIT/MIN PO (20:23)
[2017-01-16] MEDS ORDERED: SUCR PO (20:23)
[2017-01-16] MEDS ORDERED: Z300 PO (20:23)
[2017-01-16] MEDS ORDERED: FLORASTOR250 MG PO (20:24)
[2017-01-16] MEDS ORDERED: KDUR10 PO (20:24)
[2017-01-16] MEDS ORDERED: BUM1 PO (20:24)
[2017-01-16] MEDS ORDERED: TOPAMAX100 PO (20:24)
[2017-01-16] MEDS ORDERED: ELIQUIS 5 MG TAB5 MG PO (20:25)
[2017-01-16] MEDS ORDERED: FERROUS SULF325 M1 PO (20:25)
[2017-01-16] MEDS ORDERED: PRIN5 PO (20:25)
[2017-01-16] MEDS ORDERED: LOP25 PO (20:25)
[2017-01-16] MEDS ORDERED: LIPITOR40 PO (20:26)
[2017-01-16] MEDS ORDERED: FLOMAX4 PO (20:26)
[2017-01-16] MEDS ORDERED: PRIM250 PO (20:26)
[2017-01-16] MEDS ORDERED: DSS PO (20:27)
[2017-01-16] MEDS ORDERED: ZOFRAN4 PO (20:27)
[2017-01-16] MEDS ORDERED: DUONEB INH (20:27)
[2017-01-16] MEDS ORDERED: T PO (20:27)
[2017-01-16] MEDS ORDERED: K-TABS10 MEQ PO (20:28)
[2017-01-16] MEDS ORDERED: ASAB PO (20:30)
[2017-01-16] MEDS ORDERED: NYSTATPOW TOP (20:35)
[2017-01-28] MEDS ORDERED: REFRESH OPH SO0.3 ML OPH (18:24)
== END 2016-12-16 16:45 | DRG 378 ==
LOC: ER 17:53 → 6NO 19:49
PROVIDERS: Emergency Medicine; Hospitalist; Internal Medicine; Physician Assistant Medical
PROC: 30233N1 Transfusion of Nonautologous Red Blood Cells into Peripheral Vein, Percutaneous Approach (ICD-10-PCS; principal; 2016-12-06)
DX: K92.2 Gastrointestinal hemorrhage, unspecified (principal); D62 Acute posthemorrhagic anemia; J91.8 Pleural effusion in other conditions classified elsewhere; I50.32 Chronic diastolic (congestive) heart failure; G20 Parkinson's disease; F03.90 Unspecified dementia, unspecified severity, without behavioral disturbance, psychotic disturbance, mood disturbance, and anxiety; I25.10 Atherosclerotic heart disease of native coronary artery without angina pectoris; I73.9 Peripheral vascular disease, unspecified; I34.0 Nonrheumatic mitral (valve) insufficiency; G25.81 Restless legs syndrome; G40.909 Epilepsy, unspecified, not intractable, without status epilepticus; H54.41 Blindness, right eye, normal vision left eye; R33.9 Retention of urine, unspecified; D38.1 Neoplasm of uncertain behavior of trachea, bronchus and lung; E78.5 Hyperlipidemia, unspecified; Z89.611 Acquired absence of right leg above knee; Z74.01 Bed confinement status; Z23 Encounter for immunization; Z95.1 Presence of aortocoronary bypass graft; Z87.891 Personal history of nicotine dependence; Z95.5 Presence of coronary angioplasty implant and graft; Z66 Do not resuscitate; Z85.820 Personal history of malignant melanoma of skin; Z92.3 Personal history of irradiation; Z57.5 Occupational exposure to toxic agents in other industries
CPT/HCPCS: 36415; 71010; 71250; 80048; 80053; 80076; 80184; 80202; 81001; 82272; 82728; 83540; 83550; 83615; 83735; 83880; 84100; 84145; 84443; 84484; 85014; 85018; 85025; 85045; 85610; 85730; 86850; 86900; 86901; 86920; 87040; 90670; 92610-GN; 93005; 93306; 97162-GP; 97166-GO; 99291; A9270-GY; G0009; J0692; J2916; J3370; P9016